=== PATIENT | male | born 1935 | race Caucasian/White ===

== ENCOUNTER 2018-12-16 18:44 | Inpatient (IN) | payer MEDICARE, MEDICAID ==
[~2018-12-16] VITALS: Ht 167.6 cm; Wt 47.2 kg
--- NOTE | 2018-12-16 00:10 | NUR ---
RECEIVED REPORT FROM LAB AT 2350 FOR LACTIC ACID AT 3.4. DR. DICKERSON MADE AWARE. NO NEW ORDERS AT THIS TIME. PT AT STABLE CONDITION. SIDE RAILS UP X2, HOB 30 DEGREES, CALL LIGHT WITHIN REACH. WILL CONTINUE TO MONITOR PT.
--- NOTE | 2018-12-16 18:53 | NUR ---
CALLED CT FOR CODE BRAIN PER DR. BRUCE.
--- NOTE | 2018-12-16 18:55 | NUR ---
83 Y MALE BIB [facility] FIRE FOR ALOC. STATES PT USUALLY IS ORIENTED TO PERSON AND PLACE. PER FACILITY, PT STARTED DECLINING TODAY. RESPONSIVE TO PAIN NOW. PUPILS UNREACTIVE TO LIGHT. 5MM RIGHT EYE. 4 MM LEFT EYE. COLD TO TOUCH. BEARHUGGER PLACED. TEMP 91.2 HYPOTENSIVE, BP NOW 74/38. HR IN THE 50'S. GAVE ATROPINE IN THE FIELD. 100% OXYGEN WITH 15L NON-REBREATHER. PT ON RA AT FACILITY. BED BOUND. INCONTINENT. MED HX: SXHIZOPHRENIA/HTN/DM/HYPERLIPIDEMIA/HX CVA RX: SEE MED RECON
[2018-12-16 19:00] VITALS: BP 74/38
--- NOTE | 2018-12-16 19:00 | NUR ---
18 G R AC PLACED IN FIELD. FLUID BOLUS STARTED IN [place]. 24 G L FOREARM PLACED IN FACILITY. FLUID BOLUS STARTED IN FIELD.
--- NOTE | 2018-12-16 19:12 | NUR ---
BP105/37. HR 60. RR 22. 100% NON RE-BREATHER 15 L.
[2018-12-16] MEDS ORDERED: PIPERACILLIN/TAZOBACTAM 3.375 GM in DEXTROSE 5% 50 ML IV ONE (19:15)
[2018-12-16] MEDS ORDERED: VANCOMYCIN 1,000 MG in DEXTROSE 5% 250 ML IV ONE (19:15)
[2018-12-16] MEDS ORDERED: NACL 0.9% 1,000 ML IV ONE ×2 (19:25)
--- NOTE | 2018-12-16 19:30 | NUR ---
MUNOZ CATH INSERTED USING STERILE TECHNIQUE. PATIENT TOLERATED WELL. 1400ML OF CLOUDY URINE DRAINED.
[2018-12-16] MEDS ORDERED: [UNRECOGNIZED DRUG - CODE] PO (19:32)
[2018-12-16] MEDS ORDERED: [UNRECOGNIZED DRUG - CODE] RC (19:32)
[2018-12-16] MEDS ORDERED: PANT40EC GT (19:32)
[2018-12-16] MEDS ORDERED: KEP500 PO (19:32)
[2018-12-16] MEDS ORDERED: MULT9LIQ5 GT (19:32)
[2018-12-16] MEDS ORDERED: ALBU1.25 IH (19:32)
[2018-12-16] MEDS ORDERED: CARV12.5 PO (19:32)
[2018-12-16] MEDS ORDERED: RAMI10CA PO (19:32)
[2018-12-16] MEDS ORDERED: [UNRECOGNIZED DRUG - CODE] IM (19:32)
[2018-12-16] MEDS ORDERED: METF500T PO (19:32)
[2018-12-16] MEDS ORDERED: ASPI81EC98 PO (19:32)
[2018-12-16] MEDS ORDERED: ESCI5TAB PO (19:32)
[2018-12-16] MEDS ORDERED: VALP-22 GT (19:32)
[2018-12-16] MEDS ORDERED: PIPERACILLIN/TAZOBACTAM 3.375 GM VIAL IV ONE (19:37)
[2018-12-16] MEDS ORDERED: VANCOMYCIN 1,000 MG VIAL ONE (19:37)
[2018-12-16 19:58] LABS: BASOPHILS % (AUTO) 0.1 % (0.0-2.0); EOSINOPHILS % (AUTO) 0.5 % (0.0-4.0); HEMATOCRIT 22.8 % (36-52); LYMPHOCYTES # (AUTO) 0.5 K/uL (2.0-11.5); LYMPHOCYTES % (AUTO) 26.8 % (20.5-51.1); MEAN CORPUSCULAR HEMOGLOBIN 26 pg (27-31); MEAN CORPUSCULAR HGB CONC 29 g/dL (33-37); MEAN CORPUSCULAR VOLUME 88.8 fL (80-94); MONOCYTES % (AUTO) 2.2 % (1.7-9.3); NEUTROPHILS # (AUTO) 1.2 K/uL (1.8-7.7); NEUTROPHILS % (AUTO) 70.4 % (42.2-75.2); PLATELET COUNT (AUTO) 87 K/uL (140-450); RED BLOOD CELL COUNT(AUTO) 2.57 MIL/uL (4.20-6.10)
--- NOTE | 2018-12-16 20:00 | NUR ---
tTemp 90.1, Dr. Galeano aware. no change in orders. bear hugger in place.
[2018-12-16] MEDS ORDERED: NOREPINEPHRINE 4 MG in DEXTROSE 5% 250 ML IV ONE (20:10)
[2018-12-16 20:18] LABS: APPEARANCE,URINE HAZY (CLEAR); BILIRUBIN,URINE NEGATIVE (NEGATIVE); BLOOD, URINE TRACE-L (NEGATIVE); COLOR,URINE YELLOW (YELLOW); LEUKOCYTE ESTERASE ,URINE 3+ (NEGATIVE); NITRITE, URINE NEGATIVE (NEGATIVE); UGLUCOSE NEGATIVE (NEGATIVE)
--- NOTE | 2018-12-16 20:21 | NUR ---
PATEINT STARTED ON LEVO DRIP ORDERED AT 0.5MCG/MIN. BP 73/38.
[2018-12-16] MEDS ORDERED: NOREPINEPHRINE 4 MG/4 ML VIAL IV ONE (20:22)
[2018-12-16 20:23] LABS: PROTHROMBIN TIME 11.7 secs (10.8-13.4)
[2018-12-16 20:27] LABS: ALBUMIN 1.7 g/dL (3.4-5.0); ANION GAP 10.7 (8-16); ASPARTATE AMINOTRANSFERASE 72 U/L (15-37); CARBON DIOXIDE 28.7 mmol/L (21-32); CHLORIDE 114 mmol/L (98-107); CREATININE 1.4 mg/dL (0.7-1.3); LIPASE 202 U/L (73-393); POTASSIUM 3.4 mmol/L (3.5-5.1); SODIUM SERUM 150 mmol/L (136-145); TOTAL BILIRUBIN 0.5 mg/dL (0.0-1.0); UREA NITROGEN, BLOOD 33 mg/dL (7-18)
[2018-12-16 20:28] LABS: RBC,URINE 0-5 /HPF (0-5); WBC,URINE TOO MANY TO COUNT /HPF (0-5)
[2018-12-16 20:30] LABS: GLUCOSE 474 mg/dL (74-106)
--- NOTE | 2018-12-16 20:34 | NUR ---
BP 74/31, DR JUSTIN MADE AWARE. LEVOPHED TITRATED UP TO 4.5MCG/MIN
[2018-12-16 20:40] LABS: HEMOGLOBIN 6.6 g/dL (12.0-18.0); WHITE BLOOD COUNT (AUTO) 1.7 K/uL (4.8-10.8)
--- NOTE | 2018-12-16 20:44 | NUR ---
BP 64/28, DR JUSTIN AWARE. LEVOPHED TITRATED UP TO 8MCG/MIN
--- NOTE | 2018-12-16 20:54 | NUR ---
BP 81/29, DR JUSTIN MADE AWARE, LEVOPHED UP TO 12MCG/MIN
--- NOTE | 2018-12-16 21:06 | NUR ---
DR JUSTIN AT BEDSIDE TO START CENTRAL LINE.
--- NOTE | 2018-12-16 21:06 | NUR ---
BP AT 95/38. LEVOPHED HELD AT 12MCG/MIN. DR JUSTIN AWARE.
--- NOTE | 2018-12-16 21:24 | NUR ---
BP 127/55, DR JUSTIN AWARE. LEVOPHED KEPT AT 12 MCG/MIN
--- NOTE | 2018-12-16 21:29 | NUR ---
2128- RT AT BEDSIDE FOR INTUBATION 2129- ETOMIDATE 20MG GIVEN THROUGH R FEMORAL CENTRAL LINE. ORDERED BY DR JUSTIN 2131- ROCURONIUM 60MG GIVEN THROUGH R FEMORAL CENTRAL LINE. ORDERED BY DR JUSTIN 2133- PATIENT INTUBATED BY DR JUSTIN HOOKED UP TO VENT. XRAY ORDERED FOR PLACEMENT VERIFICATION.
--- NOTE | 2018-12-16 21:35 | NUR ---
BP 139/65, DR JUSTIN AWARE. LEVOPHED TITRATED TO 10 MCG
--- NOTE | 2018-12-16 21:36 | NUR ---
VENT SETTINGS: A/C 450, 16 RATE, PEEP 5 FIO2 100%
[2018-12-16 21:45] VITALS: BP 168/80
--- NOTE | 2018-12-16 21:49 | NUR ---
BP 146/70. DR JUSTIN AWARE. LEVOPHED DROPPED TO 8MCG/MIN PER ORDER.
--- NOTE | 2018-12-16 22:00 | NUR ---
BP AT 162/72, DR JUSTIN AWARE. LEVOPHED DROPPED TO 8MCG/MIN PER DR VIVAR.
[2018-12-16 22:07] LABS: PROTHROMBIN TIME 11.8 secs (10.8-13.4)
[2018-12-16] MEDS ORDERED: ETOMIDATE 20 MG/10 ML VIAL IVP ONE (22:10)
[2018-12-16] MEDS ORDERED: ROCURONIUM 50 MG/5 ML VIAL IV ONE (22:10)
--- NOTE | 2018-12-16 22:22 | NUR ---
OG TUBE INSERTED, STOMACH CONTENTS ASPIRATED, PLACEMENT VERIFIED WITH ASSCULTATION
[2018-12-16] MEDS ORDERED: NACL 0.9% 1,000 ML IV SCH ×2 (22:47→23:15)
[2018-12-16] MEDS ORDERED: VANCOMYCIN PER PHARMACY MC PRN (22:50)
[2018-12-16] MEDS ORDERED: MORPHINE SULFATE 2 MG/ML SYR IVP PRN (22:50)
--- NOTE | 2018-12-16 22:53 | NUR ---
PATIENT ADMITTED TO ICU BED [address] ENGLISH. PATIENT VSS DURING TRANSPORT. TAKEN IN [facility] ON MONITOR ACCOMPANIED BY RT, EMT AND RN. BAGGED DURING TRANSFER. REPORT GIVEN TO MAGDALENE REIS.
[2018-12-16 23:09] VITALS: BP 93/52
--- NOTE | 2018-12-16 23:15 | NUR ---
RECEIVED PT FROM ER. PT ARRIVED AT [facility] ON AMBUBAG PLACED ON ETT TO VENT. MUNOZ IN PLACE, RIGHT FEMORAL CENTRAL LINE RUNNING 4MG LEVOPHED, PT HAS OGT IN PLACE, MUNOZ IN PLACE, PT IS SEDATED, PERRL 3MM, SLUGGISH, NONTRACKING, HR REGULAR, S1S2, PULSES 2+ BILATERAL UPPER AND LOWER EXTREMITIES, CAP REFILL <3S, LUNG SOUNDS CLEAR THROUGHOUT, ETT TO VENT. ABDOMEN SOFT, ROUND, NONDISTENDED, GENERALIZED WEAKNESS IN ALL EXTREMITIES, SKIN NON INTACT, MULTIPLE DRY SCABS ON BILATERAL UPPER EXTREMITIES. HOB AT 30 DEGREES, SIDE RAILS UP X2, CALL LIGHT WITHIN REACH.
[2018-12-16 23:30] VITALS: BP_SYST 147; BP_SYST 94; BP_DIAS 57; BP_DIAS 83
--- NOTE | 2018-12-16 23:39 | NUR ---
CHECKED PT AND FOUND PT ON [facility] VENT SETTINGS OF A/C: RR 16, TIDAL VOLUME 450,PEEP 5, FIO2 100%. ALARMS ARE ON & AUDIBLE. VENT CONNECTED TO RED PLUG OUTLET. PT WAS TOLERATING SETTINGS WELL. AMBU BAG AT SIDE OF PT'S BED. TITRATED FIO2 DOWN TO 80%, PT KOLE TITRATION WELL WITH SATURATION STILL AT 100%. THICK TENACIOUS SECRETIONS ARE SUCTIONED FROM PT. WILL CONT TO MONITOR THE PT
[2018-12-16 23:45] VITALS: BP 89/56
[2018-12-17] VITALS (105 sets, daily range): BP systolic 78–160; BP diastolic 45–80
--- NOTE | 2018-12-17 01:42 | NUR ---
PT AT BED AWAKE, BREATHING REGULARLY, PULLING TUBES. PLACED MITTENS FOR PT SAFETY. SIDE RAILS UP X2, HOB 30 DEGREES, CALL LIGHT WITHIN REACH. WILL CONTINUE TO MONITOR PT.
[2018-12-17] MEDS ORDERED: NOREPINEPHRINE 8 MG in DEXTROSE 5% 250 ML IV PRN (02:55)
--- NOTE | 2018-12-17 03:39 | NUR ---
TITRATED PT'S FIO2 DOWN TO 40%, PT TOLERATING TITRATION WELL WITH SATURATIONS BETWEEN 99%-100%, WILL CONT TO MONITOR THE PT
[2018-12-17] MEDS ORDERED: PIPERACILLIN/TAZOBACTAM 2.25 GM in DEXTROSE 5% 50 ML IV SCH (05:00)
[2018-12-17] MEDS ORDERED: PIPERACILLIN/TAZOBACTAM 2.25 GM VIAL IV ONE (06:29)
[2018-12-17 06:30] LABS: ANION GAP 16.5 (8-16); CARBON DIOXIDE 26.4 mmol/L (21-32); CHLORIDE 120 mmol/L (98-107); CREATININE 1.5 mg/dL (0.7-1.3); GLUCOSE 169 mg/dL (74-106); POTASSIUM 3.9 mmol/L (3.5-5.1); UREA NITROGEN, BLOOD 29 mg/dL (7-18)
[2018-12-17 06:34] LABS: SODIUM SERUM 159 mmol/L (136-145)
[2018-12-17 06:36] LABS: ALBUMIN 1.8 g/dL (3.4-5.0); ASPARTATE AMINOTRANSFERASE 60 U/L (15-37); MAGNESIUM 1.6 mg/dL (1.8-2.4); TOTAL BILIRUBIN 0.7 mg/dL (0.0-1.0)
[2018-12-17 06:49] LABS: BASOPHILS % (AUTO) 0.2 % (0.0-2.0); EOSINOPHILS % (AUTO) 0.4 % (0.0-4.0); HEMATOCRIT 28.2 % (36-52); HEMOGLOBIN 8.8 g/dL (12.0-18.0); LYMPHOCYTES # (AUTO) 0.6 K/uL (2.0-11.5); LYMPHOCYTES % (AUTO) 18.1 % (20.5-51.1); MEAN CORPUSCULAR HEMOGLOBIN 26 pg (27-31); MEAN CORPUSCULAR HGB CONC 31 g/dL (33-37); MEAN CORPUSCULAR VOLUME 84.6 fL (80-94); MONOCYTES # (AUTO) 0.2 K/uL (0.8-1.0); MONOCYTES % (AUTO) 4.8 % (1.7-9.3); NEUTROPHILS # (AUTO) 2.5 K/uL (1.8-7.7); NEUTROPHILS % (AUTO) 76.5 % (42.2-75.2); RED BLOOD CELL COUNT(AUTO) 3.33 MIL/uL (4.20-6.10); RED CELL DISTRIBUTION WIDTH 24.6 % (11.6-13.7)
--- NOTE | 2018-12-17 06:50 | NUR ---
RECEIVED REPORT FROM LAB AT 0635 FOR SOD[address] AT 157[address] DR[address] DICKERSON MADE AWARE. NEW ORDER FOR 0.45% NS AT 60 ML/HR. PT AT STABLE CONDITION. SIDE RAILS UP X2, HOB 30 DEGREES, CALL LIGHT WITHIN REACH. WILL CONTINUE TO MONITOR PT.
[2018-12-17] MEDS: DEXT 5% / NACL 0.45% 1,000 ML IV SCH (07:00)
--- NOTE | 2018-12-17 07:04 | NUR ---
REPORT GIVEN TO AM NURSE FOR CONTINUITY OF CARE. PT IS STABLE AT THIS TIME.
--- NOTE | 2018-12-17 07:13 | NUR ---
RECEIVED BEDSIDE REPORT FROM CUSTOM SHOE DESIGNER AND MAKER RNMAGDALENE, FOR CONTINUITY OF CARE. PATIENT OPENS EYES SPONTANEOUSLY, UNABLE TO MAKE NEEDS KNOWN OR FOLLOW COMMANDS. PATIENT SKIN IS WARM, DRY, AFEBRILE, INTACT WITH BRUISING TO BUE. PATIENT IS ETT TO VENT, BREATHING IS EVEN AND UNLABORED. PATIENT IS SB ON MONITOR, FLACC 0. PATIENT HAS OGT IN PLACE. HE HAS MUNOZ IN PLACE TO CLEAR YELLOW URINE. HOB IS 30 DEGREES, BED LOCKED, SIDE RAILS UP. SAFETY ALARMS AND PRECAUTIONS ASSESSED AND ENFORCED. NO SIGNS OF DISTRESS NOTED. WILL CONTINUE TO MONITOR
--- NOTE | 2018-12-17 07:16 | NUR ---
RECEIVED ON A [employer] R860 VENTILATOR PLUGGED INT A RED OUTLET TOLERATING WELL WITHOUT INCIDENT TO AN ENDOTRACHEAL TUBE #7.5 SECURED AT 25cm TEETH/GUM WITH AN ANCHOR FAST AMBU BAG AT BEDSIDE LOC ASLEEP RESTING WELL BREATH SOUNDS CLEAR BILATERAL WITH GOOD AERATION THROUGHOUT LUNG [place] EQUAL CHEST RISE AIRWAY PATENT
--- NOTE | 2018-12-17 07:45 | NUR ---
CALLED PATIENT'S SISTER REGARDING CONSENT FOR BLOOD TRANSFUSION, CONSENT RECEIVED. DR. DICKERSON IS HERE, UPDATED ON PATIENT'S CONDITION, SPOKE WITH PATIENT'S SISTER. WILL FOLLOW UP ON ANY ORDERS.
--- NOTE | 2018-12-17 08:05 | NUR ---
STARTED PATIENT ON BLOOD TRANSFUSION, NO SIGNS OF DISTRESS OR REACTION AT THIS TIME, WILL CONTINUE TO MONITOR
--- NOTE | 2018-12-17 08:14 | NUR ---
PATIENT HAS BEEN SCREENED AND CATEGORIZED HIGH NUTRITION RISK. PATIENT WILL BE SEEN WITHIN 1-2 DAYS OF ADMISSION. 12/17/18-12/18/[address]
[2018-12-17] MEDS: LORazepam 2 MG/ML VIAL IVP PRN ×2 (08:27→16:27)
[2018-12-17 08:46] LABS: PLATELET COUNT (AUTO) 108 K/uL (140-450); WHITE BLOOD COUNT (AUTO) 3.3 K/uL (4.8-10.8)
[2018-12-17] MEDS: ENOXAPARIN 30 MG/0.3 ML SYR SUBQ SCH (09:55)
[2018-12-17] MEDS: FAMOTIDINE 20 MG/2 ML VIAL IV SCH ×2 (09:57→21:13)
--- NOTE | 2018-12-17 10:30 | NUR ---
RESTING COMFORTABLY NO EVIDENCE OF PULMONARY DISTRESS NOTED GOOD EQUAL CHEST RISE AIRWAY PATENT SATURATION 100% ON FIO2 OF 35% TITRATED FIO2 TO 30% EIRENE/RN NOTIFIED
--- NOTE | 2018-12-17 10:35 | NUR ---
BLOOD TRANSFUSION COMPLETE, PATIENT TOLERATED WELL. NO SIGNS OF DISTRESS NOTED.
--- NOTE | 2018-12-17 10:55 | NUR ---
TURNED OFF LEVOPHED, PATIENT BP IS 114/73.
--- NOTE | 2018-12-17 11:50 | NUR ---
STARTED PATIENT ON SECOND UNIT OF BLOOD, NO SIGNS OF REACTION NOTED. WILL CONTINUE TO MONITOR
--- NOTE | 2018-12-17 11:59 | NUR ---
RESTIGN COMFORTABLY NO DISTRESS NOTED Addendum: 12/17/18 at 1203 by Shai Narayanan RT RESTIGN = RESTING
[2018-12-17] MEDS: PIPER/TAZO 2.25GM/D5W PREMIX 50 ML IV SCH ×2 (12:55→21:14)
--- NOTE | 2018-12-17 13:21 | NUR ---
CALLED DR. DICKERSON REGARDING MG LEVEL, RECEIVED ORDER FROM [facility] 2G IV.
--- NOTE | 2018-12-17 13:22 | NUR ---
FAMILY AT BEDSIDE, UPDATED ON PATIENT'S CONDITION. WILL FOLLOW UP ON ANY ORDERS.
--- NOTE | 2018-12-17 13:30 | NUR ---
2ND UNIT OF BLOOD TRANSFUSION COMPLETE, PATIENT TOLERATED WELL, NO SIGNS OF REACTION NOTED. FAMILY AT BEDSIDE, WILL CONTINUE TO MONITOR
--- NOTE | 2018-12-17 13:40 | NUR ---
RESTING WELL NO EVIDENCE OF RESPIRATORY DISTRESS NOTED EQUAL CHEST RISE AIRWAY PATENT FAMILY AND FRIENDS IN ROOM
[2018-12-17] MEDS ORDERED: MAG SULF 2000 MG/WATER PREMIX 50 ML IV SCH (14:00)
--- NOTE | 2018-12-17 14:07 | NUR ---
12/17/18 RD INITIAL ASSESSMENT COMPLETED PLEASE REFER TO NUTRITION ASSESSMENT UNDER CARE ACTIVITY FOR ESTIMATED NUTRITIONAL NEEDS. 1. CONTINUE NPO MEDICALLY NECESSARY 2. IF PT NEEDS TO BE LONG-TERM NPO AND GI BLEED RESOLVES, RECOMMEND NEPRO AT 45 ML/HR WITH FREE WATER FLUSH 200 ML Q4H -THIS WILL PROVIDE A VOLUME OF 1080 ML, 1994 KCAL, AND 87 GRAMS OF PROTEIN. IT MEETS 99% OF PT�S ENERGY NEEDS AND 90% OF PROTEIN NEEDS. 3. IF PT NEEDS TO BE LONG-TERM NPO AND GI BLEED DOES NOT RESOLVE, CONSIDER TPN. 4. IF PT�S DIET WILL BE ADVANCED, RECOMMEND CCHO 60 DIET WITH TEXTURE AND LIQUID CONSISTENCY SUGGESTED BY A SWALLOW EVALUATION. 5. RD TO FOLLOW-UP 2-3 DAYS,HIGH RISK [address]
--- NOTE | 2018-12-17 15:14 | NUR ---
TOLERATING VENTILATORY SUPPORT WELL WITHOUT ADVERSE REACTIONS NOTED GOOD CHEST RISE AND AERATION THROUGHOUT BILATERAL LUNG WESTON AIRWAY PATENT
--- NOTE | 2018-12-17 17:27 | NUR ---
NO RESPIRATORY DISTRESS NOTED EQUAL CHEST RISE AIRWAY PATENT
--- NOTE | 2018-12-17 19:15 | NUR ---
RECEIVED REPORT AT BEDSIDE FROM Iliana HENSON, WILL FOLLOWUP CARE.
--- NOTE | 2018-12-17 19:23 | NUR ---
RECEIVED PATIENT ENDOTRACHEALLY INTUBATED WITH 7.5 ETT AT 25 CM AT TEETH/GUM LINE TO VENT ON SETTINGS: AC/VC 450, 16, +5, 30%. TOLERATING VENT SETTINGS. VENT CHECK DONE. VENT PLUGGED INTO RED OUTLET. VENT ALARMS ON AND AUDIBLE. AMBU BAG AT BEDSIDE. AIRWAY SECURE AND PATENT. SUCTIONED SMALL AMOUNT OF THICK , YELLOW/PINK TINGED SECRETIONS. NO RESPIRATORY DISTRESS NOTED AT THIS TIME. WILL CONTINUE TO MONITOR.
--- NOTE | 2018-12-17 19:30 | NUR ---
PATIENT IS SLEEPING IN BED, NO SIGNS OF DISTRESS AT THIS TIME. PATIENT OPENS EYES SPONTANEOUSLY, UNABLE TO MAKE NEEDS KNOWN OR FOLLOW COMMANDS. PATIENTS SKIN IS WARM, DRY, AFEBRILE, INTACT WITH BRUISING TO BUE. PATIENT IS ETT TO VENT, ACVC FIO2 30% VT 450 RATE 16 PEEP 5, BREATHING IS EVEN AND UNLABORED. PATIENT IS SB ON MONITOR, FLACC 0. PATIENT HAS OGT IN PLACE, CONFIRMED PLACEMENT BY AUSCULTATION, NO RESIDUAL AT THIS TIME. HE HAS MUNOZ IN PLACE TO CLEAR YELLOW URINE. PT HAS RIGHT FEMORAL CENTRAL LINE IN PLACE. LEVOPHED AT 1 MCG. HOB IS 30 DEGREES, BED LOCKED, SIDE RAILS UP. SAFETY ALARMS AND PRECAUTIONS ASSESSED AND ENFORCED. NO SIGNS OF DISTRESS NOTED. WILL CONTINUE TO MONITOR
--- NOTE | 2018-12-17 19:40 | NUR ---
INCREASED PATIENT'S LEVOPHED TO 3 MCG PER BLOOD PRESSURE 82/46. WILL CONTINUE TO MONITOR.
--- NOTE | 2018-12-17 20:23 | NUR ---
PATIENT IS BRADYCARDEIC HR AROUND 49-50/MIN AND HAD SHORT RUNS OF NON-SUSTAINED V TACH AROUND 7 IN A ROW; PAGED DR. CALI TO INFORM HIM; RETURNED MY PAGE AFTER 10 MINS; NO NEW ORDER MADE.
--- NOTE | 2018-12-17 21:20 | NUR ---
DECREASED THE PATIENT'S LEVOPHED BACK DOWN TO 2 MCG PER BLOOD PRESSURE IN 160'S.
--- NOTE | 2018-12-17 21:35 | NUR ---
REASSESSED PT'S BLOOD PRESSURE, NOW IN 120'S, PT RESTING COMFORTABLY. NO SIGNS OF DISTRESS. WILL CONTINUE TO MONITOR.
[2018-12-17] MEDS: VANCOMYCIN 500 MG in DEXTROSE 5% 100 ML IV SCH (21:43)
[2018-12-18] VITALS (54 sets, daily range): BP systolic 74–164; BP diastolic 38–137
[2018-12-18] MEDS: DEXT 5% / NACL 0.45% 1,000 ML IV SCH ×2 (01:59→17:20)
--- NOTE | 2018-12-18 05:30 | NUR ---
PER TIA RT V. GERRI PATIENT SELF EXTUBATED THEN PLACED ON SUPPLEMENTAL OXYGEN AT 3 LPM VIA OXYMIZER ER/MD CALLED TO BEDSIDE DR. ZAZUETA ASSESSED PATIENT REINTUBATION NOT REQUIRED MD STATED THAT IF PATINE PRESENTS WITH INCREASED SOB PLACE ON BIPAP ABG TO DRAWN BY NOC RT
--- NOTE | 2018-12-18 06:18 | NUR ---
ABG DRAWN BY TIA TALLEY TO VALIDATE PULMONARY/METABOLIC STATUS
--- NOTE | 2018-12-18 06:25 | NUR ---
[facility] CALLED [phone] BY TIA TALLEY TO REPORT PATIENT STATUS AND ABG SAMPLE REPORT Addendum: 12/18/18 at 0936 by Shai Narayanan RT PER ANGIOGRAPHY TECHNOLOGIST DR. NATAN CALI CRULLER MAKER MACHINE TO BE PAGED
--- NOTE | 2018-12-18 06:38 | NUR ---
(LATE ENTRY) [facility] UNABLE TO ENTER TORBO ABG ORDER FROM DR. NATAN CALI ABG SAMPLE REPORT PLACED IN PATIENT CHART
--- NOTE | 2018-12-18 06:40 | NUR ---
CALL BACK FROM DR NATAN CALI NOC RT Katherin TALLEY SPOKE TO ISABEL RUST REVIEWED PATIENT STATUS AND ABG SAMPLE REPORT ORDERS: NO REINTUBATION; SUPPLEMENTAL OXYGEN AT 2LPM VIA NC; HHN DUONEB Q4 PRN FOR SOB AND OR WHEEZE MEDITECH INOP AT THIS TIME DAY RT TO PLACE TORBO FROM ISABEL RUST WHEN MEDITECH SYSTEM BECOMES AVAILABLE
--- NOTE | 2018-12-18 08:00 | NUR ---
Initial shift assessment done (see assessment part). Lethargic, arousable to light pain stimuli, does not follow command, moans to pain stimuli. No signs of pain or dyspnea. O2 sat 99-100% on O2 at 2 L/min via NC. SB on monitor. SBP in 100's-120's. No ectopy noted. HOB elevated. Updated of plan of care. Will continue to monitor.
[2018-12-18] MEDS: FAMOTIDINE 20 MG/2 ML VIAL IV SCH ×2 (09:05→21:09)
[2018-12-18] MEDS: ENOXAPARIN 30 MG/0.3 ML SYR SUBQ SCH (09:17)
[2018-12-18] MEDS: ALBUTEROL SULFATE/IPRATROPIU 3 ML SOL IH PRN ×2 (09:50→13:58)
--- NOTE | 2018-12-18 10:00 | NUR ---
Resting in bed. No signs of pain or dyspnea. O2 sat 94-98%. SB on monitor. SBP in 80's-120's. No ectopy noted. HOB elevated. Will continue to monitor.
--- NOTE | 2018-12-18 11:45 | NUR ---
Patient accidentally pulled out his OGT. Given oral care, tolerated well. No active bleeding noted. community worker made aware. Will inform MD.
--- NOTE | 2018-12-18 12:00 | NUR ---
Reassessment done. Neuro status still the same. No signs of pain or dyspnea. O2 sat 95-100% on O2 at 2 L/min via NC. SB on monitor. SBP in 70's-120's. No ectopy noted. Levophed drip still at 2 mcg/min. HOB elevated. Updated of plan of care. Will continue to monitor.
[2018-12-18] MEDS: PIPER/TAZO 2.25GM/D5W PREMIX 50 ML IV SCH ×2 (12:31→21:09)
--- NOTE | 2018-12-18 13:30 | NUR ---
SBP in 100's-130's. Levophed drip decrease to 1 mcg/min. Will continue to monitor.
--- NOTE | 2018-12-18 13:45 | NUR ---
Dr Cotton is in the room. updated of status and also about the OGT. New orders receive. stated to not reinsert the OGT.
--- NOTE | 2018-12-18 14:00 | NUR ---
Resting in bed. No signs of pain or dyspnea. O2 sat 91-97%. SB on monitor. SBP in 110's-130's. No ectopy noted. HOB elevated. Will continue to monitor.
--- NOTE | 2018-12-18 15:15 | NUR ---
SBP in 100's-130's. Levophed drip turn off at this time. Will continue to monitor.
--- NOTE | 2018-12-18 16:00 | NUR ---
Reassessment done. More awake but still does not follow command. No signs of pain or dyspnea. O2 sat 94-100% on O2 at 2 L/min via NC. SB on monitor. SBP in 90-100. No ectopy noted. Levophed drip still off. HOB elevated. Updated of plan of care. Will continue to monitor.
--- NOTE | 2018-12-18 18:00 | NUR ---
Resting in bed. No signs of pain or dyspnea. O2 sat 94-98%. SB on monitor. SBP in 100-120's. No ectopy noted. HOB elevated. Will continue to monitor.
--- NOTE | 2018-12-18 19:15 | NUR ---
Report given to incoming overnight caregiver RN's, RN's Bebe.
--- NOTE | 2018-12-18 19:20 | NUR ---
RECEIVED REPORT FROM DAY SHIFT NURSE BRAEDEN, WILL FOLLOWUP CARE.
--- NOTE | 2018-12-18 19:40 | NUR ---
Initial shift assessment done, Patient is Lethargic, arousable to light pain stimuli, does not follow command, moans to painful stimuli. No signs of pain or dyspnea. O2 sat 99-100% on O2 at 2 L/min via NC. SB on monitor-53. BP 108/57, temp 96.4, RR 21. PERRL, SLUGGISH, CAP REFILL <3 SEC. RHONCHI HEARD IN BILATERAL UPPER & LOWER LOBES-EXPIRATORY. S1S2. ABDOMEN SOFT AND NONTENDER WITH HYPOACTIVE BOWEL SOUNDS. Patient has a right femoral central line in place, dressing dry, line intact & patent with D5NS @ 60 ML's/HR, MUNOZ CATH IN PLACE, YELLOW URINE NOTED. PATIENT HAS A RIGHT WRIST/ARM SKIN TEAR AND SEVERAL SMALL SKIN TEARS TO THE BILATERAL UPPER EXTREMITIES. SKIN IS WARM AND DRY. HOB elevated. SIDERAILS UP AND SAFETY CHECKS PERFORMED. Updated of plan of care. Will continue to monitor.
--- NOTE | 2018-12-18 20:50 | NUR ---
DR. FRIEDMAN AT BEDSIDE TO ASSESS PATIENT, WILL FOLLOWUP ON ANY ORDERS.
[2018-12-18] MEDS: VANCOMYCIN 500 MG in DEXTROSE 5% 100 ML IV SCH (21:58)
--- NOTE | 2018-12-18 22:00 | NUR ---
REPOSITIONED PATIENT Addendum: 12/19/18 at 0348 by Lidia Benitez RN ASSESSED BONY PROMINENCES AND OFF LOADED PRESSURE AREAS.
[2018-12-19] VITALS (12 sets, daily range): BP systolic 103–158; BP diastolic 45–90
--- NOTE | 2018-12-19 01:00 | NUR ---
PATIENT CONTINUES TO UNDRESS HIMSELF, ATTEMPTS TO YANK OFF NASAL CANNULA AND BLOOD PRESSURE CUFF. REAPPLIED GOWN, NASAL CANNULA AND CUFF/OTHER EQUIPMENT. REORIENT THE PATIENT AND PROVIDED PATIENT WITH SKIN CARE TO THE ARMS, CHEST AND FACE. PATIENT RESTING COMFORTABLY NOW.
--- NOTE | 2018-12-19 03:00 | NUR ---
PATIENT IS VERY RESTLESS IN BED, CANNOT FOLLOW COMMANDS, OPENS EYES AND ATTEMPTS TO DETACH LEADS, BP CUFF, AND NASAL CANNULA. MUST REORIENT PATIENT AND REATTACH LEADS AND EQUIPMENT. WILL CONTINUE TO CLOSELY MONITOR .
[2018-12-19] MEDS: PIPER/TAZO 2.25GM/D5W PREMIX 50 ML IV SCH ×3 (05:00→21:22)
--- NOTE | 2018-12-19 05:00 | NUR ---
PATIENT PULLED OUT RIGHT FEMORAL CENTRAL LINE, CATHETER INTACT, NO CONTINUOUS BLEEDING, PRESSURE PUT ON SITE. NEW RIGHT WRIST PERIPHERAL IV STARTED, 20 G, WRAPPED IN DRESSING. PATIENT TOLERATING WELL.
[2018-12-19 05:24] LABS: BASOPHILS % (AUTO) 0.4 % (0.0-2.0); EOSINOPHILS % (AUTO) 1.7 % (0.0-4.0); HEMATOCRIT 35.3 % (36-52); HEMOGLOBIN 11.1 g/dL (12.0-18.0); LYMPHOCYTES # (AUTO) 1.1 K/uL (2.0-11.5); LYMPHOCYTES % (AUTO) 37.5 % (20.5-51.1); MEAN CORPUSCULAR HEMOGLOBIN 27 pg (27-31); MEAN CORPUSCULAR HGB CONC 32 g/dL (33-37); MEAN CORPUSCULAR VOLUME 84.9 fL (80-94); MONOCYTES # (AUTO) 0.1 K/uL (0.8-1.0); MONOCYTES % (AUTO) 4.1 % (1.7-9.3); NEUTROPHILS # (AUTO) 1.6 K/uL (1.8-7.7); NEUTROPHILS % (AUTO) 56.3 % (42.2-75.2); RED BLOOD CELL COUNT(AUTO) 4.15 MIL/uL (4.20-6.10); RED CELL DISTRIBUTION WIDTH 22.5 % (11.6-13.7); WHITE BLOOD COUNT (AUTO) 2.9 K/uL (4.8-10.8)
[2018-12-19 05:50] LABS: ANION GAP 12.9 (8-16); CARBON DIOXIDE 25.2 mmol/L (21-32); CHLORIDE 119 mmol/L (98-107); CREATININE 1.6 mg/dL (0.7-1.3); GLUCOSE 77 mg/dL (74-106); POTASSIUM 3.1 mmol/L (3.5-5.1); SODIUM SERUM 154 mmol/L (136-145); UREA NITROGEN, BLOOD 23 mg/dL (7-18)
[2018-12-19 05:55] LABS: MAGNESIUM 2.1 mg/dL (1.8-2.4); PHOSPHORUS 3.4 mg/dL (2.5-4.9)
[2018-12-19 06:23] LABS: PLATELET COUNT (AUTO) 89 K/uL (140-450)
[2018-12-19] MEDS: ALBUTEROL SULFATE/IPRATROPIU 3 ML SOL IH PRN (07:08)
--- NOTE | 2018-12-19 07:10 | NUR ---
RECEIVED REPORT FROM PBX INSTALLER RN. PT RESTING IN BED. SB ON MONITOR. OPENS EYES SPONTANEOUSLY, MOVES EXTREMITIES. SKIN DRY AND WARM TO TOUCH. RHONCHI ON LUNG AUSCULTATION. PERIPHERAL LINE ON RIGHT WRIST 20G COVERED WITH DRESSING. INTACT LINE. FLUSHED. D5%1/2NS INFUSING AT 60 ML/HR. MULTIPLE SKIN TEAR NOTED ON LEFT ARM, AND RIGHT HAND. NO BLEEDING OR DRAINAGE FROM THE SITE. ABDOMEN SOFT, ROUND AND NON-TENDER. ACTIVE BOWEL SOUND. F/C IN PLACE DRAINING CLEAR YELLOW URINE VIA GRAVITY. DENIES PAIN. HOB ELEVATED. BED IN LOW POSITION LOCKED.
--- NOTE | 2018-12-19 07:10 | NUR ---
ENDORSED CARE TO AM SHIFT NURSE TAURUS. WILL FOLLOWUP CARE.
[2018-12-19] MEDS: ENOXAPARIN 30 MG/0.3 ML SYR SUBQ SCH (09:00)
[2018-12-19] MEDS: FAMOTIDINE 20 MG/2 ML VIAL IV SCH ×2 (09:30→21:22)
[2018-12-19] MEDS: DEXT 5% / NACL 0.45% 1,000 ML IV SCH (09:30)
--- NOTE | 2018-12-19 09:33 | NUR ---
PAGED AND RECEIVED CALL BACK FROM DR. BYRD. MADE AWARE ABOUT DECREASING PLATELETS COUNT. ORDERED TO STOP LOVENOX, DO SCDS ONLY. ORDERED FOR HIT TEST, FIBRINOGEN TEST AND D-DIMER. ORDER CARRIED OUT.
[2018-12-19 11:17] LABS: D-DIMER 257 ng/ml (0-400)
--- NOTE | 2018-12-19 11:24 | NUR ---
NO CHANGE IN LOC. BREATHING NORMALLY. SPO2 98% IN ROOM AIR. IV SITE INTACT. D5% 1/2 NS INFUSING AT 60 ML/HR. CONTINUE TO MONITOR.
[2018-12-19 11:32] LABS: FIBRINOGEN 432 mg/dL (200-400)
--- NOTE | 2018-12-19 12:25 | NUR ---
PAGED DR. BYRD. WAITING FOR CALL BACK.
--- NOTE | 2018-12-19 13:00 | NUR ---
CARSON CRUM RETURNED THE CALL , UPDATE PT. CONDITION AND LAB REPORT , WILL COME TO SEE THE PATIENT.
--- NOTE | 2018-12-19 14:25 | NUR ---
EVALUATED BY DR. BYRD. UPDATED PT STATUS AND LABS. WILL FOLLOW UP ORDER.
--- NOTE | 2018-12-19 14:52 | NUR ---
PT YANK OFF GOWNS, BLANKETS AND BP CUFF OFF. RE-APPLIED GOWN AND BLANKETS. BROKE IV Y-EXTENSION OF RIGHT HAND IVX2. REPLACED Y-EXTENSION. CHANGED IV SITE DRESSING. EDUCATED NOT TO PULL OR BREAK IV LINES. CLEANSED AND APPLIED VERSATEL DRESSING TO RIGHT HAND SKIN TEAR.
--- NOTE | 2018-12-19 14:52 | NUR ---
PT ALSO NOTED WITH PICKING SKIN ON RIGHT ARM. EDUCATED ABOUT RISK OF SKIN TEAR, WOUND AND NOT TO PICK SKIN.
--- NOTE | 2018-12-19 15:41 | NUR ---
SWALLOW EVALUATION. PPATIENT PASS BEDSIDE SWALLOW EVAL, HE IS ABLE TO SWALLOW PUDDING AND APPLE SAUCE WELL.DR. BYRD ORDERED PUREE DIET ORALLY.
[2018-12-19] MEDS: KCL 20 MEQ/WATER INJ PREMIX 200 ML IV SCH ×2 (15:43→17:31)
--- NOTE | 2018-12-19 16:08 | NUR ---
FAMILY AT THE BEDSIDE. UPDATED PT STATUS. MADE AWARE THAT PT PULLS OUT TUBINGS AND ASH COLLECTOR SKIN. ALSO MADE AWARE OF MULTIPLE SKIN TEAR ON HIS ARMS.
--- NOTE | 2018-12-19 17:20 | NUR ---
PT IS MORE ALERT AND AWAKE. HR INCREASING TO 52. ON ROOM AIR 99%. NO SOB OR ACUTE RESPIRATORY DISTRESS NOTED. IV SITE INTACT. D5%NS INFUSING AT 60 ML/HR. HOB ELEVATED. BED IN LOW POSITION, LOCKED. CONTINUE TO MONITOR.
--- NOTE | 2018-12-19 18:02 | NUR ---
REPORT GIVEN TO CHATO MAGALLANES. PT WILL BE TRANSFERRED TO TELE UNIT 108A. Addendum: 12/19/18 at 1803 by Parvin Holman RN PT WILL BE TRANSFERRED TO TELE UNIT ROOM 107A.
--- NOTE | 2018-12-19 18:25 | NUR ---
PT TRANSFERRED TO TELE UNIT ROOM 107A VIA BED ON STABLE CONDITION. BELONGINGS TAKEN WITH PT.
--- NOTE | 2018-12-19 18:26 | NUR ---
RECEIVED REPORT FROM ICU NURSE. PATIENT TRANSFERRED TO [facility] BED SAFELY IN STABLE CONDITION. WILL CONTINUE TO MONITOR.
--- NOTE | 2018-12-19 19:30 | NUR ---
RECEIVED CRITICAL LAB VALUE FROM BELLOWS CHARGER ASSEMBLER OF PT URINE CULTURE POSITIVE FOR ENTEROCOCCUS VRE.
--- NOTE | 2018-12-19 19:30 | NUR ---
GAVE REPORT TO TRAFFIC WORKFORCE REPRESENTATIVE NURSE FOR CONTINUITY OF CARE. PATIENT IN STABLE CONDITION.
--- NOTE | 2018-12-19 19:31 | NUR ---
RECEIVED BEDSIDE REPORT FROM [facility] CHATO MAGALLANES. PT IS CONFUSED. A/O X1. DELAYED AND MUMBLING SPEECH. DISCUSSED PATIENT PLAN OF CARE. UNABLE TO VERBALIZE UNDERSTANDING. ON ROOM AIR. NO SIGNS OF RESP DISTRESS OR DISCOMFORT. NO PAIN. FLACC 0. IV SITE R WRIST 20G INFUSING D5 1/2NS @60. IV SITE PATENT AND INTACT. SKIN TEARS TO BOTH HANDS. COVERED WITH VERSITEL DRESSING. DRESSING CLEAN DRY AND INTACT. PT IS ON PURE DIET. CONTACT PRECAUTIONS PPE AVAILABLE BEFORE ENTERING ROOM. FALL PRECAUTIONS IN PLACE. YELLOW GOWN, SOCKS, SIGN AT DOOR, BED IN LOWEST POSITION, CALL LIGHT WITHIN REACH. WILL CONTINUE TO MONITOR.
--- NOTE | 2018-12-19 19:40 | NUR ---
MADE ATTENDING AWARE OF CRITICAL LAB VALUE - POSITIVE URINE CULTURE ENTEROCOCCUS VRE.
--- NOTE | 2018-12-19 19:45 | NUR ---
MOVED PT TO ROOM 113. ON CONTACT ISOLATION PRECAUTIONS. GOWN, GLOVES, MASK BOX ON DOOR, EASILY ACCESSIBLE BEFORE ENTERING. SIGN ON DOOR. BED IN LOW POSITION. CALL LIGHT WITHIN REACH.
--- NOTE | 2018-12-19 21:30 | NUR ---
LEFT HAND MITTEN REMOVED. AND WILL CONTINUE TO MONITOR PT. RIGHT HAND MITTEN REMAINS IN PLACE COVERING IV SITE. TO PREVENT FROM PULLING.
[2018-12-19] MEDS: LINEZOLID 600MG PREMIX 300 ML IV SCH (22:08)
--- NOTE | 2018-12-19 23:45 | NUR ---
PT CONTINUES TO TRY AND PULL OUT IV LINE AND TELE MONITOR. PT SHOWS EVIDENCE OF CONFUSION. A/OX1. WILL NOTIFY DR. WILL CONTINUE TO MONITOR AND ASSESS PT.
[2018-12-20] VITALS: BP 145/88
--- NOTE | 2018-12-20 00:02 | NUR ---
PT PUT BACK ON RESTRAINTS, NON BEHAVIORAL RESTRAINTS - MITTENS. DR ORDER IN PLACE.
[2018-12-20] MEDS: DEXT 5% / NACL 0.45% 1,000 ML IV SCH ×2 (01:40→18:35)
--- NOTE | 2018-12-20 01:43 | NUR ---
PT IN BED SLEEPING. NO SIGNS OF DISTRESS. NO SIGNS OF RESP DISTRESS. ASSESSED MITTENS. NO SIGNS OF IMPAIRED SKIN INTEGRITY. CIRCULATION < 3 SEC. DENIES PAIN. FLACC 0. REPOSITIONED IN BED. WILL CONTINUE TO MONITOR.
--- NOTE | 2018-12-20 02:15 | NUR ---
PT REMOVED MITTENS AND PULLED OUT IV. CANULA INTACT. NO SIGNS OF RESP DISTRESS. FLUIDS STOPPED. WILL REINSERT NEW IV.
[2018-12-20 04:00] VITALS: BP 138/69
--- NOTE | 2018-12-20 04:00 | NUR ---
ASSESSED SKIN INTEGRITY AND DOCUMENTED. NO SIGNS OF DISTRESS. TEMPERATURE AT 90.6. INITIATED MEASURES TO INCREASE BODY TEMP. WILL REASSESS.
[2018-12-20] MEDS: PIPER/TAZO 2.25GM/D5W PREMIX 50 ML IV SCH ×3 (06:16→20:37)
--- NOTE | 2018-12-20 06:41 | NUR ---
TEMPERATURE NOW 95.6. NO SIGNS OF DISTRESS. WILL CONTINUE TO MONITOR.
--- NOTE | 2018-12-20 06:42 | NUR ---
WILL ENDORSE PT TO DAY SHIFT RN. PT IN STABLE CONDITION.
--- NOTE | 2018-12-20 07:10 | NUR ---
RECEIVED REPORT FROM LINE PALLETIZER NURSE CHRIS FOR CONTINUITY OF CARE. PT IN STABLE CONDITION. RESPIRATIONS EVEN AND UNLABORED. ROOM AIR. IV INTACT AND PATENT. SAFETY MEASURES IN PLACE. CALL LIGHT AT BEDSIDE. BED IN LOW POSITION. BED ALARM SET. WILL CONTINUE TO MONITOR.
[2018-12-20 07:25] LABS: BASOPHILS % (AUTO) 0.2 % (0.0-2.0); EOSINOPHILS % (AUTO) 1.1 % (0.0-4.0); HEMATOCRIT 34.2 % (36-52); HEMOGLOBIN 11.1 g/dL (12.0-18.0); LYMPHOCYTES # (AUTO) 0.7 K/uL (2.0-11.5); LYMPHOCYTES % (AUTO) 31.2 % (20.5-51.1); MEAN CORPUSCULAR HEMOGLOBIN 27 pg (27-31); MEAN CORPUSCULAR HGB CONC 32 g/dL (33-37); MEAN CORPUSCULAR VOLUME 83.8 fL (80-94); MONOCYTES # (AUTO) 0.1 K/uL (0.8-1.0); MONOCYTES % (AUTO) 4.9 % (1.7-9.3); NEUTROPHILS # (AUTO) 1.5 K/uL (1.8-7.7); NEUTROPHILS % (AUTO) 62.6 % (42.2-75.2); RED BLOOD CELL COUNT(AUTO) 4.08 MIL/uL (4.20-6.10); RED CELL DISTRIBUTION WIDTH 22.6 % (11.6-13.7)
[2018-12-20 07:37] LABS: PHOSPHORUS 3.3 mg/dL (2.5-4.9)
[2018-12-20 07:38] LABS: ANION GAP 14.2 (8-16); CARBON DIOXIDE 24.5 mmol/L (21-32); CHLORIDE 114 mmol/L (98-107); CREATININE 1.7 mg/dL (0.7-1.3); GLUCOSE 168 mg/dL (74-106); POTASSIUM 3.7 mmol/L (3.5-5.1); SODIUM SERUM 149 mmol/L (136-145); UREA NITROGEN, BLOOD 23 mg/dL (7-18)
[2018-12-20 07:57] LABS: PLATELET COUNT (AUTO) 66 K/uL (140-450); WHITE BLOOD COUNT (AUTO) 2.4 K/uL (4.8-10.8)
[2018-12-20 08:00] VITALS: BP 113/63
--- NOTE | 2018-12-20 09:15 | NUR ---
GAVE ORDERED DUE IV MEDICATIONS AT THIS TIME. PT IN STABLE CONDITION. BED IN LOW POSITION. BED ALARM SET CALL LIGHT AT BEDSIDE. WILL CONTINUE TO MONITOR
[2018-12-20] MEDS: FAMOTIDINE 20 MG/2 ML VIAL IV SCH ×2 (09:20→20:37)
--- NOTE | 2018-12-20 09:20 | NUR ---
REPOSITIONED PT AT THIS TIME. PT IN STABLE CONDITION. BED IN LOW POSITION. BED ALARM SET CALL LIGHT AT BEDSIDE. WILL CONTINUE TO MONITOR
[2018-12-20] MEDS: LINEZOLID 600MG PREMIX 300 ML IV SCH ×2 (09:21→21:30)
--- NOTE | 2018-12-20 10:17 | NUR ---
SCREEN FOR LOW [place]USHKA SCALE AT RISK,UPPER EXTREMITIES MULTIPLE ECCHYMOSIS WITH SKIN TEARS TO RIGHT HAND, HAND MITTEN IN PLACE , PRESSURE INJURY PREVENTION INTERVENTIONS IN PLACE. -CLEANSE RIGHT HANDS SKIN TEARS WITH NS. PAT DRY , APPLY VERSATEL DRESSING Q7DAYS AND PRN IF SOILING -TURN AND REPOSITION PATIENT Q 2H OFFLOAD SACRALCOCCYX -ASSESS AND MONITOR SKIN CONDITION DURING POSITION CHANGE -OFFLOAD BILATERAL HEELS BY PLACING PILLOWS UNDER CALVES AT ALL TIMES, UNLESS OTHERWISE CONTRAINDICATED -APPLY HEEL PROTECTORS TO BILATERAL HEELS AT ALL TIMES -PRESSURE REDISTRIBUTION BY PLACING PILLOWS -KEEP SKIN CLEAN AND DRY AT ALL TIMES.
--- NOTE | 2018-12-20 10:48 | NUR ---
SATURATION 87% ON ROOM AIR POST HHN THERAPY PLACED ON SUPPLEMENTAL OXYGEN AT 2 LPM VIA DENG KING/CHATO NOTIFIED
--- NOTE | 2018-12-20 10:58 | NUR ---
PATIENT WITH NPC DURING AND POST [facility]ERAPY AND RESPIRATORY DRUG UNABLE TO PRODUCE SPUTUM SAMPLE FOR CULTURE
--- NOTE | 2018-12-20 11:14 | NUR ---
REPOSITIONED PT AT THIS TIME. PT IN STABLE CONDITION. BED IN LOW POSITION. BED ALARM SET CALL LIGHT AT BEDSIDE. WILL CONTINUE TO MONITOR
[2018-12-20 12:00] VITALS: BP 106/54
--- NOTE | 2018-12-20 12:02 | NUR ---
PT HAD REMOVED O2 NC. NC WAS PLACED BACK ON. PT IN STABLE CONDITION. BED IN LOW POSITION. BED ALARM SET CALL LIGHT AT BEDSIDE. WILL CONTINUE TO MONITOR.
--- NOTE | 2018-12-20 13:03 | NUR ---
REPOSITIONED PT AT THIS TIME. PT IN STABLE CONDITION. BED IN LOW POSITION. BED ALARM SET CALL LIGHT AT BEDSIDE. WILL CONTINUE TO MONITOR
--- NOTE | 2018-12-20 13:30 | NUR ---
MORENO VAZQUEZ RECEIVED FOR PT DUE TO 95.1 TEMP. SAEID FROM ICU CAME AND ASSISTED WITH MORENO VAZQUEZ WARMER FOR PT. PT IN STABLE CONDITION. BED IN LOW POSITION. BED ALARM SET. CALL LIGHT AT BEDSIDE. WILL CONTINUE TO MONITOR
[2018-12-20] MEDS: ALBUTEROL SULFATE/IPRATROPIU 3 ML SOL IH PRN (14:27)
--- NOTE | 2018-12-20 14:57 | NUR ---
12/20/18 RD FOLLOW UP COMPLETED PLEASE REFER TO NUTRITION ASSESSMENT UNDER CARE ACTIVITY FOR ESTIMATED NUTRITIONAL NEEDS. 1. CONTINUE PUREE DIET TOLERATED 2. RECOMMEND SWALLOW EVALUATION 3. RECOMMEND GLUCERNA BID WITH LIQUID CONSISTENCY SUGGESTED BY SWALLOW EVALUATION 4. RD TO FOLLOW-UP 2-3 DAYS, HIGH RISK NILTON SULLIVAN, SUN
[2018-12-20 16:00] VITALS: BP 123/52
[2018-12-20] MEDS ORDERED: SODIUM PHOSPHATE 118 ML ENEM RC SCH (16:30)
--- NOTE | 2018-12-20 16:45 | NUR ---
PT LYING IN BED IN STABLE CONDITION. BED IN LOW POSITION. BED ALARM ON. CALL LIGHT AT BEDSIDE.
--- NOTE | 2018-12-20 16:46 | NUR ---
S.T. BEDSIDE SWALLOW EVAL COMPLETED See report for details. Pt presents w/ mod-severe oropharyngeal dysphagia c/b slow oral prep, delayed pharyngeal swallow initiation and coughing after swallows of both thin liquids and nectar thick liquids. Recommend: 1) Continue pureed diet, downgrade liquid texture to honey thick liquids only. No straws. 2) P.O. meds crushed and mixed w/ puree. 3) Defer to MD for dietary restrictions 4) 1:1 feeder w/ aspiration precautions. No further tx indicated at this time. DC to [facility]. D/w CHATO Roberts results/recommendations. Time 5553-8349
--- NOTE | 2018-12-20 18:00 | NUR ---
ASSISTED IN FEEDING, PT REFUSED MEAL AT THIS TIME.
--- NOTE | 2018-12-20 19:28 | NUR ---
GAVE REPORT TO INDUSTRIAL GAS SERVICER SUPERVISOR NURSE FOR CONTINUITY OF CARE. PT IN STABLE CONDITION.
--- NOTE | 2018-12-20 19:29 | NUR ---
RECEIVED BEDSIDE REPORT FROM FERNANDO REIS. PT IS SLEEPING COMFORTABLY IN BED. NC 2L O2. RESPIRATIONS ARE EQUAL AND UNLABORED. PATIENT HAS BLANKET WARMER FOR LOW TEMP. AC TURNED OFF. PT WITH SKIN TEAR ON R HAND DRESSING INTACT. PATIENT WITH MITTEN ON FOR PULLING ON TUBES. CIRCULATION CHECKED. PT WITH MUNOZ CATH DRAINING CLEAR YELLOW URINE. IV ON R FA 20G IVF PER ORDERS. PATIENT IS COMING FOR [facility], AND HAS AN OCCULT BLOOD PENDING. NO BM. ON CONTACT ISOLATION. PLAN OF CARE DISCUSSED. BED ALARM ON AND LOWEST POSITION. CALL LIGHT WITHIN REACH. WILL CONTINUE TO MONITOR.
[2018-12-20 20:00] VITALS: BP 102/68
[2018-12-20] MEDS: DOCUSATE SODIUM 100 MG GELCAP PO SCH (20:37)
--- NOTE | 2018-12-20 20:37 | NUR ---
VITAL SIGNS ARE WITHIN NORMAL LIMITS: 102/68,68,97% 2L, 98.5. SCHEDULED MEDICATIONS GIVEN. HELD COLACE D/T PT SLEEPING AND ATTEMPT TO WAKE HIM BUT STILL DROWSY HIGH RISK OF ASPIRATION. WILL CONTINUE TO MONITOR.
--- NOTE | 2018-12-20 21:30 | NUR ---
ZYVOX NOW INFUSING PER ORDERS. PATIENT IS STILL ASLEEP AND DROWSY WHEN SPEAKING TO PATIENT VS ARE WITHIN NORMAL LIMITS. WILL HOLD COLACE.
--- NOTE | 2018-12-20 23:58 | NUR ---
VITAL SIGNS ARE WITHIN NORMAL LIMITS. PT TEMP STABLE 98.0 WITH BEAR HUGGER.PT REMAINS SLEEPING OPENS EYES WHEN LIGHTLY SHAKING. PATIENT WAS TURNED AND REPOSITION FOR COMFORT NO BM AT THIS TIME. CHECKED CIRCULATION ON MITTEN <2SEC CAP REFILL. PER DAY SHIFT DR CARSON MARTINEZ TO RENEW RESTRAINTS. NEW ORDER PUT IN. UNABLE TO ASSESS LOC. SAFETY MEASURES ARE IN PLACE. WILL CONTINUE TO MONITOR.
[2018-12-21] VITALS: BP 153/46
[2018-12-21] MEDS: ALBUTEROL SULFATE/IPRATROPIU 3 ML SOL IH PRN (01:25)
--- NOTE | 2018-12-21 01:30 | NUR ---
PATIENT HEART RATE INCREASED EKG RESEMBLED POSSIBLE SZ. WALKED IN PATIENT WAS NOT HAVING A SEIZURE BUT HAD LABORED BREATHING O2 SAT 95% ON 2L WITH WHEEZING ON LEFT SIDE. RT NOW AT BEDSIDE GIVING BREATHING TREATMENT. WILL CONTINUE TO MONITOR. Addendum: 12/21/18 at 0244 by Mattie Lamb RN VS:120/58 HR 71, 98% 2L, 20, 98.0
[2018-12-21 04:00] VITALS: BP 120/58
--- NOTE | 2018-12-21 04:00 | NUR ---
PATIENT IS SLEEPING COMFORTABLY IN BED. RESPIRATIONS ARE EQUAL AND UNLABORED. ZOSYN INFUSING PER ORDERS. SAFETY MEASURES ARE IN PLACE. WILL CONTINUE TO MONITOR.
[2018-12-21] MEDS: PIPER/TAZO 2.25GM/D5W PREMIX 50 ML IV SCH ×3 (04:13→20:16)
--- NOTE | 2018-12-21 07:18 | NUR ---
GAVE BEDSIDE REPORT TO DAY SHIFT RN. PT ENDORSED IN STABLE CONDITION.
--- NOTE | 2018-12-21 07:19 | NUR ---
RECEIVED BED SIDE REPORT FROM AIR TUBE RELEASER RN. PT SLEEPING. ON CONTACT PRECAUTIONS. MITTEN RESTRAINTS ON, CHECKED CIRCULATION, RIGHT FOREARM SKIN TEAR TREATING WITH VERSATEL. R FOREARM 20G RUNNING D51/2 NS AT 60CC/HR, ON PUREED DIET,HAS A BEAR HUGGER D/T LOW TEMP. TEMP THIS AM WAS 99.9, TURNED BED HUGGER OFF. BILAT HEEL PROTECTORS IN PLACE, SCDS IN PLACE, ON 2L NC IN NO RESPIRATORY DISTRESS, WILL CONTINUE TO MONITOR
[2018-12-21 08:00] VITALS: BP 113/62
[2018-12-21 08:01] LABS: MAGNESIUM 1.8 mg/dL (1.8-2.4); PHOSPHORUS 3.6 mg/dL (2.5-4.9)
[2018-12-21 08:05] LABS: BASOPHILS % (AUTO) 0.2 % (0.0-2.0); EOSINOPHILS % (AUTO) 0.1 % (0.0-4.0); HEMATOCRIT 33.3 % (36-52); LYMPHOCYTES # (AUTO) 0.9 K/uL (2.0-11.5); LYMPHOCYTES % (AUTO) 24.8 % (20.5-51.1); MEAN CORPUSCULAR HEMOGLOBIN 28 pg (27-31); MEAN CORPUSCULAR HGB CONC 33 g/dL (33-37); MEAN CORPUSCULAR VOLUME 83.9 fL (80-94); MONOCYTES # (AUTO) 0.1 K/uL (0.8-1.0); MONOCYTES % (AUTO) 4.1 % (1.7-9.3); NEUTROPHILS # (AUTO) 2.5 K/uL (1.8-7.7); NEUTROPHILS % (AUTO) 70.8 % (42.2-75.2); RED BLOOD CELL COUNT(AUTO) 3.97 MIL/uL (4.20-6.10)
[2018-12-21 08:28] LABS: WHITE BLOOD COUNT (AUTO) 3.5 K/uL (4.8-10.8)
[2018-12-21 08:29] LABS: PLATELET COUNT (AUTO) 82 K/uL (140-450)
[2018-12-21] MEDS: FAMOTIDINE 20 MG/2 ML VIAL IV SCH ×2 (09:00→20:17)
[2018-12-21] MEDS: DOCUSATE SODIUM 100 MG GELCAP PO SCH ×2 (09:00→20:19)
--- NOTE | 2018-12-21 09:00 | NUR ---
PT IS ASLEEP AND DID NOT TAKE AM MEDS. TRIED YELLING AND SHAKING PATIENT. STILL ASLEEP. RR WNL. VS STABLE
[2018-12-21] MEDS: LINEZOLID 600MG PREMIX 300 ML IV SCH ×2 (09:21→21:20)
[2018-12-21 10:07] LABS: ANION GAP 14.2 (8-16); CARBON DIOXIDE 22.7 mmol/L (21-32); CHLORIDE 115 mmol/L (98-107); CREATININE 2.1 mg/dL (0.7-1.3); GLUCOSE 134 mg/dL (74-106); POTASSIUM 3.9 mmol/L (3.5-5.1); SODIUM SERUM 148 mmol/L (136-145); UREA NITROGEN, BLOOD 21 mg/dL (7-18)
[2018-12-21] MEDS: DEXT 5% / NACL 0.45% 1,000 ML IV SCH (11:00)
--- NOTE | 2018-12-21 11:55 | NUR ---
PT HAD A SMALL FORMED BROWN BM. WILL DO OCCULT BLOOD TEST. PT REPOSITIONED. CHECKED SKIN AND CIRCULATION, LAST TEMP WAS 99.6. PT HAS BILAT HEEL PROTECTOR, AND SCDS IN PLACE. WILL CONTINUE TO MONITOR
[2018-12-21 12:00] VITALS: BP 118/56
--- NOTE | 2018-12-21 15:00 | NUR ---
PT TRANSPORTED TO GET CT HEAD W/O CONTRAST. ON 2L NC, IN NO RESPIRATORY DISTRESS AND IN NO PAIN
[2018-12-21] MEDS ORDERED: ACETAMINOPHEN 650 MG SUPP RC PRN (15:35)
[2018-12-21 16:00] VITALS: BP 134/61
--- NOTE | 2018-12-21 17:36 | NUR ---
PT STILL ASLEEP. HAS NOT EATEN B,L,D. IS AWARE OF PT'S CONDITION. FAMILY CAME TO VISIT EARLIER AND SAID THIS WAS NOT PT'S BASELINE. CT HEAD, STAT ABG AND AMMONIA LABS WERE ORDERED. TRIED TO WAKE PT CONTINUOUSLY. ONLY RESPONSIVE TO PAIN
--- NOTE | 2018-12-21 19:25 | NUR ---
RECEIVED BEDSIDE REPORT FROM JIGNESH REIS. PT IS SLEEPING COMFORTABLY IN BED. NC 2L O2. RESPIRATIONS ARE EQUAL AND UNLABORED. PT WITH SKIN TEAR ON R HAND DRESSING C/D/I. PATIENT WITH MITTEN ON FOR PULLING ON TUBES. CIRCULATION CHECKED. PT HAS BEEN SLEEPING THROUGH OUT THE DAY. PT NON VERBAL. WITH POOR PO INTAKE SWALLOW EVAL ON 12/20 FOR PUREE AND HONEY THICK FLUIDS. PT WITH MUNOZ CATH DRAINING CLEAR YELLOW URINE. IV ON R FA 20G IVF PER ORDERS. PATIENT IS COMING FOR [facility], AND HAS AN OCCULT BLOOD NEGATIVE. ON CONTACT ISOLATION. PLAN OF CARE DISCUSSED. BED ALARM ON AND LOWEST POSITION. CALL LIGHT WITHIN REACH. WILL CONTINUE TO MONITOR.
--- NOTE | 2018-12-21 19:30 | NUR ---
ENDORSED PT TO DRILL SETUP OPERATOR RN. PT IN STABLE CONDITION.
[2018-12-21 20:00] VITALS: BP 135/59
--- NOTE | 2018-12-21 20:16 | NUR ---
VITAL SIGNS ARE WITHIN NORMAL LIMITS. UNABLE TO ASSESS LOC. PT CONTINUE ASLEEP AND NON VERBAL. RESPONSIVE TO LIGHT SHAKING BUT DOESN'T OPEN EYES. PO MEDICATIONS HELD FOR RISK OF ASPIRATION. SAFETY MEASURES ARE IN PLACE. MITTEN REMOVED GOOD CAP REFILL. WILL CONTINUE TO MONITOR.
[2018-12-21] MEDS: VALPROIC ACID 250 MG/5 ML UDC PO SCH (20:20)
[2018-12-21] MEDS: levETIRAcetam 500 MG TAB PO SCH (20:20)
--- NOTE | 2018-12-21 20:45 | NUR ---
SPOKE WITH PATIENTS SISTER. MRS CHURCH. SISTER EXPRESSED SHE DOESN'T SEE PATIENT'S CONDITION IMPROVING AND SHE BELIEVES HE SHOULD NOT BE DISCHARGE. I ATTEMPTED TO EDUCATE BUT SHE WAS VERY UPSET AND WOULD INTERRUPT. EXPLAINED TO HER THE TEST THAT WERE DONE TODAY AND RESULTS. PT HAD CT W/O CONTRAST OF HEAD, ABG, AND AMMONIA LEVEL. SHE EXPRESSED SHE WOULD WANT A CXR TO SEE IF PNA IS IMPROVING. WILL COMMUNICATE CONCERN TO DOCTOR.
--- NOTE | 2018-12-21 21:30 | NUR ---
SPOKE WITH DR SANCHEZ ABOUT PTS CONDITION. NEW ORDER FOR CXR IN AM. SAFETY MEASURES ARE IN PLACE. WILL CONTINUE TO MONITOR.
--- NOTE | 2018-12-21 22:30 | NUR ---
PATIENT IS SLEEPING COMFORTABLY IN BED. RESPIRATIONS ARE EQUAL AND UNLABORED. PATIENT REPOSITION FOR COMFORT. HOB ELEVATED. SAFETY MEASURES ARE IN PLACE. WILL CONTINUE TO MONITOR.
--- NOTE | 2018-12-21 23:46 | NUR ---
VITAL SIGNS ARE WITHIN NORMAL LIMITS. 140/64, HR 60, 98% 2L, 18, 97.2. MITTENS REMOVED AND IV SECURED. SAFETY MEASURES ARE IN PLACE. WILL CONTINUE TO MONITOR.
[2018-12-22] VITALS: BP 140/64
--- NOTE | 2018-12-22 02:35 | NUR ---
PT IS SLEEPING COMFORTABLY IN BED. RESPIRATIONS ARE EQUAL AND UNLABORED. ALL SAFETY MEASURES ARE IN PLACE. BED ALARM ON AND ON LOWEST POSITION.
[2018-12-22] MEDS: DEXT 5% / NACL 0.45% 1,000 ML IV SCH ×2 (03:30→19:13)
[2018-12-22 04:00] VITALS: BP 152/70
--- NOTE | 2018-12-22 04:00 | NUR ---
VITAL SIGNS ARE WITHIN NORMAL LIMITS. NO S/S OF DISTRESS. SAFETY MEASURES ARE IN PLACE. WILL CONTINUE TO MONITOR.
[2018-12-22] MEDS: PIPER/TAZO 2.25GM/D5W PREMIX 50 ML IV SCH ×3 (04:17→21:36)
--- NOTE | 2018-12-22 07:28 | NUR ---
GAVE BEDSIDE REPORT TO DAY SHIFT RN. PATIENT ENDORSED IN STABLE CONDITION.
--- NOTE | 2018-12-22 07:29 | NUR ---
RECEIVED BED SIDE REPORT FROM ORTHOPEDIC NURSE PRACTITIONER RN. PT MORE AWAKE, EYES STILL CLOSED BUT MOVING MORE. MUNOZ STILL IN, ON 2L NC, VERSATEL DRESSING REINFORCED, IV FLUIDS STILL RUNNING AT 60CC/HR, WILL CONTINUE TO MONITOR
[2018-12-22 07:38] LABS: BASOPHILS % (AUTO) 0.4 % (0.0-2.0); EOSINOPHILS % (AUTO) 0.9 % (0.0-4.0); HEMATOCRIT 32.8 % (36-52); HEMOGLOBIN 10.6 g/dL (12.0-18.0); LYMPHOCYTES # (AUTO) 1.6 K/uL (2.0-11.5); LYMPHOCYTES % (AUTO) 37.5 % (20.5-51.1); MEAN CORPUSCULAR HEMOGLOBIN 27 pg (27-31); MEAN CORPUSCULAR HGB CONC 32 g/dL (33-37); MONOCYTES # (AUTO) 0.2 K/uL (0.8-1.0); MONOCYTES % (AUTO) 5.2 % (1.7-9.3); NEUTROPHILS # (AUTO) 2.3 K/uL (1.8-7.7); PLATELET COUNT (AUTO) 71 K/uL (140-450); RED CELL DISTRIBUTION WIDTH 23.4 % (11.6-13.7); WHITE BLOOD COUNT (AUTO) 4.1 K/uL (4.8-10.8)
[2018-12-22 07:51] LABS: ANION GAP 12.4 (8-16); CARBON DIOXIDE 23.8 mmol/L (21-32); CHLORIDE 115 mmol/L (98-107); CREATININE 1.8 mg/dL (0.7-1.3); GLUCOSE 113 mg/dL (74-106); POTASSIUM 3.2 mmol/L (3.5-5.1); SODIUM SERUM 148 mmol/L (136-145); UREA NITROGEN, BLOOD 15 mg/dL (7-18)
[2018-12-22 08:00] VITALS: BP 150/72
[2018-12-22 08:09] LABS: MAGNESIUM 1.7 mg/dL (1.8-2.4); PHOSPHORUS 2.9 mg/dL (2.5-4.9)
--- NOTE | 2018-12-22 08:25 | NUR ---
PT MORE AWAKE AND IS STARTING TO PICK AT EAR AND PULL ON OXYGEN. EYES ARE STILL CLOSED. PUT ON ROSITA BANDAGE ON HIS IV FOR PRECAUTION. TIRE BLADDER MAKER TRIED TO FEED BREAKFAST BUT SEEMS WEAK AND DOES NOT FULLY OPEN MOUTH OR TRY TO INTAKE FOOD. WILL KEEP ON NPO AND LET KNOW.
[2018-12-22] MEDS: levETIRAcetam 500 MG TAB PO SCH (09:00)
[2018-12-22] MEDS: MULTIVITAMIN/MINERALS 15 ML UDBTL PO SCH (09:00)
[2018-12-22] MEDS: VALPROIC ACID 250 MG/5 ML UDC PO SCH (09:00)
[2018-12-22] MEDS: DOCUSATE SODIUM 100 MG GELCAP PO SCH ×2 (09:00→20:44)
[2018-12-22] MEDS: ESCITALOPRAM 20 MG TAB PO SCH (09:00)
[2018-12-22] MEDS: ASPIRIN 81 MG TAB.CHEW PO SCH (09:00)
[2018-12-22] MEDS ORDERED: PANTOPRAZOLE 40 MG TABEC PO SCH (09:00)
--- NOTE | 2018-12-22 09:10 | NUR ---
DID NOT GIVE PT PO AM MEDS BUT GAVE IV MEDS. PT STILL LETHARGIC AND HAS NOT OPENED UP HIS EYES YET. TRIED FEEDING HIM BREAKFAST BUT SEEMS TO WEAK TO CLOSE AND SWALLOW. WILL CONTINUE TO MONITOR
[2018-12-22] MEDS: FAMOTIDINE 20 MG/2 ML VIAL IV SCH ×2 (09:34→20:36)
[2018-12-22] MEDS: LINEZOLID 600MG PREMIX 300 ML IV SCH ×2 (09:34→20:35)
[2018-12-22 12:00] VITALS: BP 144/77
--- NOTE | 2018-12-22 12:45 | NUR ---
FAMILY AT BEDSIDE. EXPLAINED TO PT CURRENT POC. VERBALIZED UNDERSTANDING. FAMILY TRIED TO FEED PT BUT PT ONLY KEEPS FOOD IN MOUTH AND DOES NOT SWALLOW. FAMILY CONTINUES TO TRY TO STIMULATE MOUTH. PT IS SPONTANEOUSLY OPENING EYES NOW. WILL CONTINUE TO MONITOR
[2018-12-22] MEDS ORDERED: levETIRAcetam 500 MG in NACL 0.9% 100 ML IV SCH (14:40)
[2018-12-22] MEDS ORDERED: VALPROATE SODIUM 500 MG in NACL 0.9% 100 ML IV SCH (14:40)
--- NOTE | 2018-12-22 14:40 | NUR ---
12/22/18 RD FOLLOW UP COMPLETED PLEASE REFER TO NUTRITION ASSESSMENT UNDER CARE ACTIVITY FOR ESTIMATED NUTRITIONAL NEEDS. 1. CONTINUE PUREE DIET TOLERATED 2. RECOMMEND A SWALLOW EVALUATION 3. IF PT FAIL SWALLOW EVALUATION OR PO INTAKE REMAINS >75% CONSIDER TUBE FEEDING: GLUCERNA 1.2 AT 65 ML/HR. FWF 120 ML Q4H. -THIS WILL PROVIDE 1560 ML OF VOLUME, 1872 KCAL, 93 GMS OF PROTEIN. IT WILL MEET 100% PT�S ENERGY NEEDS AND 97% OF PROTEIN NEEDS. 4. RD TO FOLLOW-UP 2-3 DAYS, RISK NILTON SULLIVAN RD
[2018-12-22] MEDS ORDERED: MAG SULF 2000 MG/WATER PREMIX 50 ML IV SCH (15:30)
[2018-12-22 16:00] VITALS: BP 136/77
[2018-12-22] MEDS ORDERED: KCL 20 MEQ/WATER INJ PREMIX 200 ML IV SCH (17:00)
--- NOTE | 2018-12-22 19:25 | NUR ---
ENDORSED PT TO DIAMOND CLEAVER RN. PT IN STABLE CONDITION
--- NOTE | 2018-12-22 19:26 | NUR ---
REPORT RECEIVED FROM AM NURSE AT BEDSIDE. PT IN STABLE CONDITION. AAOX1-2. FLACC 0. NO SOB 92% O2 SAT ON RA. AFEBRILE. IV SITE R FA 20G RUNNING D5 1/2NS@75ML/HR PATENT AND INTACT. SKIN WARM, DRY, AND NOT INTACT DUE TO A R FA SKIN TEAR. MUNOZ IN PLACE. BED LOCKED IN LOW POSITION. CALL NGUYEN WITHIN REACH. SAFETY PRECAUTION IN PLACE. ALL NEEDS MET AT THIS TIME.
[2018-12-22 20:00] VITALS: BP 155/69
[2018-12-22] MEDS: VALPROATE SODIUM 500 MG in NACL 0.9% 100 ML IV SCH (20:35)
--- NOTE | 2018-12-22 20:35 | NUR ---
ZYVOX HUNG AND RUNNING. PEPCID GIVEN IVP. COLACE HELD. PT TOLERATED WELL.
[2018-12-22] MEDS: levETIRAcetam 500 MG in NACL 0.9% 100 ML IV SCH (20:36)
--- NOTE | 2018-12-22 21:36 | NUR ---
LONNY HUNG AND RUNNING.
--- NOTE | 2018-12-22 22:30 | NUR ---
DIOGENES PEREZ AND RUNNING.
--- NOTE | 2018-12-22 23:00 | NUR ---
JULIANO HUNG AND RUNNING.
[2018-12-23] VITALS: BP 129/54
--- NOTE | 2018-12-23 00:10 | NUR ---
FIRST BAG OF K-RIDER HUNG AND RUNNING. IV PUMP LOCKED. PT TOLERATING WELL.
[2018-12-23] MEDS ORDERED: KCL 20 MEQ/WATER INJ PREMIX 200 ML IV ONE (00:15)
--- NOTE | 2018-12-23 02:00 | NUR ---
K-RIDER BAG 2 OF 2 HUNG AND RUNNING.
[2018-12-23 04:00] VITALS: BP 157/71
[2018-12-23] MEDS: PIPER/TAZO 2.25GM/D5W PREMIX 50 ML IV SCH ×3 (04:25→20:21)
--- NOTE | 2018-12-23 04:25 | NUR ---
LONNY HUNG AND RUNNING. PT TOLERATED WELL.
--- NOTE | 2018-12-23 07:10 | NUR ---
REPORT GIVEN TO AM NURSE AT BEDSIDE. PT IN STABLE CONDITION.
--- NOTE | 2018-12-23 07:11 | NUR ---
RECEIVED REPORT FROM HOSPITAL SUPERINTENDENT NURSE. PATIENT LYING DOWN IN BED, SLEEPING, AROUSABLE BY VOICE AND TOUCH. LETHARGIC, SKIN COLOR APPROPRIATE TO ETHNICITY, WARM TO TOUCH. RIGHT FOREARM SKIN TEAR NOTED, DRESSING DRY AND INTACT. RESPIRATIONS EVEN, UNLABORED, ON O2 3L/MIN VIA NC. ABDOMEN SOFT, NON-DISTENDED. MUNOZ CATHETER IN PLACE. IV SITE INTACT, PATENT, AND INFUSING IVF PER MD ORDERS. REVIEWED PLAN OF CARE WITH PATIENT. PATIENT UNABLE TO COMPREHEND. SAFETY MEASURES IN PLACE, CALL LIGHT WITHIN REACH. WILL CONTINUE TO MONITOR.
[2018-12-23 07:39] LABS: BASOPHILS % (AUTO) 0.2 % (0.0-2.0); EOSINOPHILS # (AUTO) 0.1 K/uL (0-0.4); EOSINOPHILS % (AUTO) 1.5 % (0.0-4.0); HEMATOCRIT 33.6 % (36-52); HEMOGLOBIN 10.9 g/dL (12.0-18.0); LYMPHOCYTES # (AUTO) 1.6 K/uL (2.0-11.5); LYMPHOCYTES % (AUTO) 39.5 % (20.5-51.1); MEAN CORPUSCULAR HEMOGLOBIN 27 pg (27-31); MEAN CORPUSCULAR HGB CONC 32 g/dL (33-37); MEAN CORPUSCULAR VOLUME 83.8 fL (80-94); MONOCYTES # (AUTO) 0.2 K/uL (0.8-1.0); NEUTROPHILS # (AUTO) 2.2 K/uL (1.8-7.7); NEUTROPHILS % (AUTO) 53.8 % (42.2-75.2); PLATELET COUNT (AUTO) 75 K/uL (140-450); RED BLOOD CELL COUNT(AUTO) 4.01 MIL/uL (4.20-6.10); RED CELL DISTRIBUTION WIDTH 22.6 % (11.6-13.7); WHITE BLOOD COUNT (AUTO) 4.2 K/uL (4.8-10.8)
[2018-12-23 08:00] VITALS: BP 159/70
[2018-12-23 08:14] LABS: MAGNESIUM 1.9 mg/dL (1.8-2.4)
[2018-12-23 08:24] LABS: CARBON DIOXIDE 25.6 mmol/L (21-32); CHLORIDE 114 mmol/L (98-107); CREATININE 1.4 mg/dL (0.7-1.3); GLUCOSE 112 mg/dL (74-106); PHOSPHORUS 2.9 mg/dL (2.5-4.9); POTASSIUM 3.6 mmol/L (3.5-5.1); SODIUM SERUM 149 mmol/L (136-145); UREA NITROGEN, BLOOD 11 mg/dL (7-18)
--- NOTE | 2018-12-23 08:38 | NUR ---
SPEECH THERAPIST AT BEDSIDE PERFORMING SWALLOW EVAL. PER SPEECH THERAPIST, PATIENT COUGHED AFTER GIVING APPLESAUCE, RECOMMENDS NPO AT THIS TIME. KRISH VARNER, SISTER CALLED, AND SAID THAT SHE AND HER OTHER SISTER CARLEY VARNER, IS ALRIGHT WITH PLACING A GTUBE FOR FEEDING SINCE PATIENT IS NOT EATING WELL. WILL NOTIFY .
--- NOTE | 2018-12-23 08:47 | NUR ---
S.T. REPEAT SWALLOW EVAL COMPLETED Pt presents w/ severe oropharyngeal dysphagia, comparatively worse than initial eval on 12/20/18. Pt now demonstrates a cough response after swallows, which he did not previously. However, pt was able to take 2 oz of applesauce and 2 oz of honey thick liquids by spoon from clinician and initiate pharyngeal swallow response, albeit delayed. Recommend: 1) NPO status with non-oral means of nutrition, hydration and meds. 2) Cancel diet order. No further tx indicated at this time. DC to [facility]. D/w CHATO Harp. Time [id number]
[2018-12-23] MEDS: levETIRAcetam 500 MG in NACL 0.9% 100 ML IV SCH ×2 (08:50→20:21)
[2018-12-23] MEDS: DEXT 5% / NACL 0.45% 1,000 ML IV SCH ×2 (08:59→21:53)
[2018-12-23] MEDS: LINEZOLID 600MG PREMIX 300 ML IV SCH ×2 (09:00→20:22)
[2018-12-23] MEDS: MULTIVITAMIN/MINERALS 15 ML UDBTL PO SCH (09:00)
[2018-12-23] MEDS: DOCUSATE SODIUM 100 MG GELCAP PO SCH ×2 (09:00→21:00)
[2018-12-23] MEDS: ESCITALOPRAM 20 MG TAB PO SCH (09:00)
[2018-12-23] MEDS: ASPIRIN 81 MG TAB.CHEW PO SCH (09:00)
[2018-12-23] MEDS: FAMOTIDINE 20 MG/2 ML VIAL IV SCH ×2 (10:05→20:21)
[2018-12-23] MEDS: VALPROATE SODIUM 500 MG in NACL 0.9% 100 ML IV SCH ×2 (10:05→20:22)
--- NOTE | 2018-12-23 10:17 | NUR ---
PATIENT LYING DOWN IN BED. NO DISTRESS NOTED. LETHARGIC. SCHEDULED IV MEDICATIONS DUE GIVEN. ORAL MEDICATIONS NOT GIVEN AT THIS TIME PATIENT UNABLE TO TOLERATE PO MEDICATIONS. WILL CONTINUE TO MONITOR.
[2018-12-23 12:00] VITALS: BP 151/63
--- NOTE | 2018-12-23 13:36 | NUR ---
PATIENT GIVEN SCHEDULED MEDICATIONS. LAYING IN BED, RESPIRATIONS EVEN AND UNLABORED. NO DISTRESS AT THIS TIME.
--- NOTE | 2018-12-23 14:30 | NUR ---
PATIENT LYING DOWN IN BED SLEEPING, AROUSABLE BY VOICE AND TOUCH. CONDITION UNCHANGED. WILL CONTINUE TO MONITOR;
[2018-12-23 16:00] VITALS: BP 140/66
--- NOTE | 2018-12-23 19:34 | NUR ---
GAVE REPORT TO BLACKENER NURSE FOR CONTINUITY OF CARE. PATIENT IN STABLE CONDITION.
--- NOTE | 2018-12-23 19:35 | NUR ---
REPORT RECEIVED FROM AM NURSE AT BEDSIDE. PT IN STABLE CONDITION. AAOX1. INTRODUCED SELF TO PT. BOARD UPDATED. PT IS BEDBOUND. FAMILY AT BEDSIDE. FLACC 0. NO SOB. AFEBRILE. IV SITE R FA 20G RUNNING D5 1/2NS@75ML/HR PATENT AND INTACT. SKIN WARM, DRY, AND NOT INTACT DUE TO A SKIN TEAR ON THE R FA. DRESSING DUE TO CHANGE ON 12/25. PT HAS MUNOZ. BED LOCKED IN LOW POSITION. CALL NGUYEN WITHIN REACH. SAFETY ALARM ON. SAFETY MEASURES IN PLACE. ALL NEEDS MET AT THIS TIME.
--- NOTE | 2018-12-23 19:45 | NUR ---
PULMONARY GROUP CALLED. DR. BYRD SITE SURVEYOR.
--- NOTE | 2018-12-23 19:50 | NUR ---
MD RETURNED CALL. EXPLAINED TO HIM THAT THE FAMILY IS COMPLAINING THAT THE PATIENT IS RECEIVING TOO MUCH SEIZURE MEDICATIONS RESULTING IN PT'S ALTERED LOC. THEY REQUESTED A DECREASE IN THE MEDICATION. EXPLAINED THAT THE MEDS GIVEN ARE FROM HIS HOME MEDICATION LIST AND WILL NOT BE CHANGED.
[2018-12-23 20:00] VITALS: BP 168/74
--- NOTE | 2018-12-23 20:21 | NUR ---
PEPCID GIVEN IVP. DOCUSATE NOT GIVEN DUE TO NPO STATUS. LONNY PEREZ AND MARGE.
--- NOTE | 2018-12-23 20:51 | NUR ---
DIOGENES PEREZ AND RUNNING.
--- NOTE | 2018-12-23 21:21 | NUR ---
JULIANO HUNG AND RUNNING.
[2018-12-24] VITALS: BP 154/57
--- NOTE | 2018-12-24 | NUR ---
PATIENT APPEARS TO BE SLEEPING. VITAL SIGNS TAKEN. NO SIGNS OF DISTRESS. PATIENT STILL ON 2L O2 VIA NC. BED IN LOW POSITION, SIDE RAILS ARE UP, AND CALL LIGHT WITHIN REACH. WILL CONTINUE TO MONITOR PATIENT.
--- NOTE | 2018-12-24 01:15 | NUR ---
PATIENT APPEARS TO BE SLEEPING IN BED. ASSESSED WOUND DRESSING ON THE RIGHT HAND/FOREARM. PATIENT SHOWS NO SIGNS OF DISTRESS. WILL CONTINUE TO MONITOR PATIENT.
--- NOTE | 2018-12-24 02:40 | NUR ---
PATIENT LYING DOWN IN BED, APPEARS TO BE SLEEPING. WILL CONTINUE TO MONITOR PATIENT.
[2018-12-24 04:00] VITALS: BP 177/81
--- NOTE | 2018-12-24 04:00 | NUR ---
PATIENT ASLEEP. VITAL SIGNS CHECKED.
[2018-12-24] MEDS: PIPER/TAZO 2.25GM/D5W PREMIX 50 ML IV SCH ×3 (04:08→21:32)
--- NOTE | 2018-12-24 04:08 | NUR ---
LONNY HUNG AND RUNNING. PT TOLERATING WELL.
--- NOTE | 2018-12-24 05:30 | NUR ---
PT'S BLOOD PRESSURE@0400 WAS 177/81. BP REASSESSED. 148/62.
--- NOTE | 2018-12-24 07:23 | NUR ---
REPORT GIVEN TO AM NURSE AT BEDSIDE. PT IN STABLE CONDITION.
--- NOTE | 2018-12-24 07:24 | NUR ---
RECEIVED BED SIDE REPORT FROM BACTERIOLOGY RESEARCH ASSISTANT RN. PT IN STABLE CONDITION, ON 2L NC, VERSATEL DRESSING STILL ON R FOREARM FOR SKIN PINA, NOT SOILED. PT NPO BECAUSE PT DIDN'T PASS SWALLOW EVAL. PEG TUBE CONSENT FORM SIGNED AND IN PT'S CHART. FAMILY MADE AWARE. R FOREARM 20G RUNNING 0.45 D5 AT 75CC/HR, NO INFILTRATION NOTED. ON TELE MONITOR SHOWING SB, WILL CONTINUE TO MONITOR
[2018-12-24 07:37] LABS: BASOPHILS % (AUTO) 0.3 % (0.0-2.0); EOSINOPHILS # (AUTO) 0.1 K/uL (0-0.4); EOSINOPHILS % (AUTO) 1.7 % (0.0-4.0); HEMATOCRIT 34.8 % (36-52); HEMOGLOBIN 11.6 g/dL (12.0-18.0); LYMPHOCYTES % (AUTO) 33.8 % (20.5-51.1); MEAN CORPUSCULAR HEMOGLOBIN 28 pg (27-31); MEAN CORPUSCULAR HGB CONC 33 g/dL (33-37); MEAN CORPUSCULAR VOLUME 83.3 fL (80-94); MONOCYTES # (AUTO) 0.1 K/uL (0.8-1.0); MONOCYTES % (AUTO) 4.5 % (1.7-9.3); NEUTROPHILS # (AUTO) 1.8 K/uL (1.8-7.7); NEUTROPHILS % (AUTO) 59.7 % (42.2-75.2); PLATELET COUNT (AUTO) 78 K/uL (140-450); RED BLOOD CELL COUNT(AUTO) 4.18 MIL/uL (4.20-6.10); RED CELL DISTRIBUTION WIDTH 23.3 % (11.6-13.7)
[2018-12-24 07:48] LABS: MAGNESIUM 1.6 mg/dL (1.8-2.4)
[2018-12-24 08:00] VITALS: BP 157/71
[2018-12-24] MEDS: ESCITALOPRAM 20 MG TAB PO SCH (09:00)
[2018-12-24] MEDS: MULTIVITAMIN/MINERALS 15 ML UDBTL PO SCH (09:00)
[2018-12-24] MEDS: DOCUSATE SODIUM 100 MG GELCAP PO SCH ×2 (09:00→21:42)
[2018-12-24] MEDS: ASPIRIN 81 MG TAB.CHEW PO SCH (09:00)
[2018-12-24] MEDS: VALPROATE SODIUM 500 MG in NACL 0.9% 100 ML IV SCH ×2 (09:00→21:32)
[2018-12-24] MEDS: levETIRAcetam 500 MG in NACL 0.9% 100 ML IV SCH (09:31)
[2018-12-24] MEDS: FAMOTIDINE 20 MG/2 ML VIAL IV SCH (09:32)
--- NOTE | 2018-12-24 10:05 | NUR ---
CALLED [facility] ([facility]) TO SEE IF THEY CAN BRING ABILIFY. SISTER SAID THAT THE MEDICATION WILL NOT BE READY UNTIL 1600 TODAY. WILL CONTINUE TO MONITOR
--- NOTE | 2018-12-24 10:30 | NUR ---
MEDS FAXED OVER TO [facility] UNIT. WILL KEEP IN SOFT CHART
--- NOTE | 2018-12-24 10:31 | NUR ---
CALLED [facility] TO HAVE THEM FAX OVER SEIZURE MEDICATIONS DOSAGE, WILL LET KNOW.
[2018-12-24] MEDS: DEXT 5% / NACL 0.45% 1,000 ML IV SCH (11:40)
[2018-12-24 12:00] VITALS: BP 157/72
[2018-12-24] MEDS: LINEZOLID 600MG PREMIX 300 ML IV SCH (12:23)
--- NOTE | 2018-12-24 12:30 | NUR ---
HUNG LINEZOLID AND IVP ZOSYN RUNNING AT 100CC/HR, NO INFILTRATION NOTED. PT STILL ON NPO. CONSENT PEG FORM SIGNED. BP 157/71, WILL NOTIFY WHEN HE COMES TO MAKE ROUNDS. ON TELE MONITOR SHOWING SB. AM MEDS NOT GIVEN D/T NPO STATUS. CALLED PHARMACY TO SEE IF THEY CAN CHANGE THE AM MED TIME TO BE GIVEN LATER. THEY SAID TO CALL THEM ONCE PT HAS PEG TUBE SO THEY CAN PUT IN A TIME TO MED TIME.
--- NOTE | 2018-12-24 12:42 | NUR ---
PT AWAKE AND CAN SAY "HI". SPONTANEOUS EYE OPENING. FAMILY JUST ARRIVED ONTO UNIT. WILL CONTINUE TO MONITOR
--- NOTE | 2018-12-24 12:56 | NUR ---
12/24/18 RD FOLLOW UP COMPLETED PLEASE REFER TO NUTRITION PROGRESS NOTE UNDER CARE ACTIVITY FOR ESTIMATED NUTRITION NEEDS. RD RECOMMENDATIONS: 1. CONTINUE NPO MEDICALLY APPROPRIATE AND RECOMMENDED PER HAND PACKER/PACKAGER. 2. IF PT IS ABLE TO INITIATE TUBE FEEDING, CONSIDER GLUCERNA 1.2 AT 65 ML/HR WITH FREE WATER FLUSH 120 ML Q4H. --THIS WILL PROVIDE 1560 ML OF VOLUME, 1872 KCAL, and 93 GMS OF PROTEIN. IT WILL MEET 100% PT�S ENERGY NEEDS AND 97% OF PROTEIN NEEDS. 3. RD TO FOLLOW-UP 2-3 DAYS, HIGH RISK ANDERSON MAURER, RD
--- NOTE | 2018-12-24 13:00 | NUR ---
DAYTIME BABYSITTER CAME TO CAFETERIA COOK PT. PT WAS TAKEN BY GIN ON 2L NC, APPEARS IN NO PAIN OR RESPIRATORY DISTRESS, FAMILY AT BEDSIDE. VS BEFORE HE LEFT: BP 157/72, 98% ON RA, 49, 96.3 TEMP, ON TELE MONITOR SHOWING SB.
[2018-12-24] MEDS ORDERED: MIDAZOLAM 2 MG/2 ML VIAL ONE (13:57)
[2018-12-24] MEDS ORDERED: fentaNYL 0.05 MG/ML VIAL ONE (13:57)
[2018-12-24] MEDS ORDERED: diphenhydrAMINE 50 MG/ML VIAL ONE (13:57)
[2018-12-24] MEDS ORDERED: hydrALAZINE 20 MG/ML VIAL IVP PRN (15:10)
[2018-12-24] MEDS ORDERED: LINE600T GT (15:17)
[2018-12-24] MEDS ORDERED: PIPE1PDS39 IV (15:17)
--- NOTE | 2018-12-24 15:50 | NUR ---
CALLED [facility] SPOKE WITH MARYBETH NOTIFIED THAT DISCHARGE PLANNING OVER THE WEAKENED , ISOLATION FOR VRE OF THE URINE . PER MARYBETH PATIENT CAN GO TO ROOM 101 C
--- NOTE | 2018-12-24 15:50 | NUR ---
MITTEN RESTRAINTS AND ABDOMINAL BINDER ORDERED AND APPLIED
[2018-12-24 16:00] VITALS: BP 149/67
[2018-12-24] MEDS ORDERED: GLIP5TAB4 GT (16:30)
[2018-12-24] MEDS ORDERED: INSULIN LISPRO SLIDING SCALE 100 UNITS/ML VIAL SUBQ PRN (16:30)
[2018-12-24] MEDS ORDERED: DEXTROSE 50% 50 ML SYR IVP PRN (16:30)
[2018-12-24] MEDS: BLOOD GLUCOSE MONITORING 1 DEV DEV FS SCH (18:00)
--- NOTE | 2018-12-24 18:18 | NUR ---
PUT IN ORDER FOR STAT KUB X-RAY OF ABDOMEN. RADIOLOGY AT BEDSIDE DOING PROCEDURE. G TUBE FEEDING SET AND PRIMED AND READY TO START. WILL START ONCE XRAY IS CLEAR
--- NOTE | 2018-12-24 19:46 | NUR ---
RECEIVED REPORT FROM CELIA RN DAYSHIFT NURSE AT BEDSIDE FOR CONTINUITY OF CARE, PT IN STABLE CONDITION.
--- NOTE | 2018-12-24 19:46 | NUR ---
GAVE REPORT TO INSURANCE VERIFICATION CLERK RN. PT IN STABLE CONDITION. G TUBE FEEDING STARTED
[2018-12-24 20:00] VITALS: BP 130/56
--- NOTE | 2018-12-24 20:00 | NUR ---
PT IN BED WITH ALL FALLS, SEIZURE AND CONTACT PRECAUTIONS IN PLACE. PT IN LOW BED WITH HOB UP 45% . HE IS AOX1 WITH 2 LITERS VIA N/C. PT HAS R/FA 22G IV SITE FLUSHED PATENT. PT HAS MUNOZ CATHETER INTACT DRAINING YELLOW URINE. GT SITE INTACT WITH 20MLS OF RESIDUAL. PT HAD MITTS ON WHICH WERE REMOVED TO CHECK FOR SKIN NO ISSUES NOTED. V/S FOLLOWS T 97.0 P 55 R 18 B/P 130/56 02 97% WITH 2 LITERS VIA N/C. PT HAS NO S/S OF PAIN OR DISTRESS NOTED. HEEL PROTECTORS IN PLACE. PT WAS TURNED AND REPOSITIONED.
[2018-12-24] MEDS: ALBUTEROL SULFATE/IPRATROPIU 3 ML SOL IH PRN (20:49)
[2018-12-24] MEDS ORDERED: CARVEDILOL 12.5 MG TAB GT SCH (21:00)
[2018-12-24] MEDS ORDERED: RAMIPRIL 10 MG PO SCH (21:00)
--- NOTE | 2018-12-24 21:00 | NUR ---
PT GIVEN ALL ORAL MEDS DUE VIA GT WELL IV DEPACON AND ZOSYN.
[2018-12-24] MEDS: levETIRAcetam 100 MG/ML ORASYR GT SCH (21:31)
[2018-12-24] MEDS: LINEZOLID 600 MG TAB GT SCH (21:31)
[2018-12-24] MEDS: BENAZEPRIL 20 MG TAB PO SCH (21:42)
--- NOTE | 2018-12-24 22:00 | NUR ---
PT WAS TURNED AND REPOSITIONED. MITTS STILL OFF PT NOT PULLING ON ANY EQUIPMENT OR IV LINES. ALL CONTACT, FALLS AND SEIZURE PRECAUTIONS IN PLACE. FINGERSTICK IS 94 NO COVERAGE NEEDED. D5 1/2 NS FLUIDS REPLACED. V/S FOLLOWS T 97.4 P 50 R 18 B/P 137/61 02 98 WITH 2 LITERS VIA N/C.
[2018-12-25] VITALS: BP 137/61
[2018-12-25] MEDS: DEXT 5% / NACL 0.45% 1,000 ML IV SCH ×2 (00:14→16:00)
--- NOTE | 2018-12-25 00:15 | NUR ---
PT IN BED ALL FALLS AND CONTACT PRECAUTIONS IN PLACE V/S FOLLOWS T 97.4 P 50 R 18 B/P 135/60 02 98% WITH 2 LITERS VIA N/C.FINGERSTICK IS 94 NO COVERAGE NEEDED.
[2018-12-25] MEDS: BLOOD GLUCOSE MONITORING 1 DEV DEV FS SCH ×4 (00:20→18:10)
--- NOTE | 2018-12-25 03:11 | NUR ---
PT SLEEPING IN BED NO S/S OF PAIN OR DISTRESS NOTED. ALL FALLS AND SEIZURE PRECAUTIONS IN PLACE.
[2018-12-25 04:00] VITALS: BP_SYST 136; BP_SYST 141; BP_DIAS 59; BP_DIAS 78
--- NOTE | 2018-12-25 04:30 | NUR ---
PT TURNED AND CHANGED. PT PULLED OUT IV SITE. WILL REINSERT LATER.
--- NOTE | 2018-12-25 05:30 | NUR ---
NEW IV SITE ON 22G R F/A LONNY HUNG AND RUNNING ORDERED.
--- NOTE | 2018-12-25 06:00 | NUR ---
PT GIVEN GLIPIZIDE VIA GT, FINGERSTICK IS 128, NO COVERAGE NEEDED. PT IN BED NO S/S OF PAIN OR DISTRESS NOTED.ALL FALLS, CONTACT A, ASPIRATION AND SEIZURE PRECAUTIONS IN PLACE.
[2018-12-25] MEDS ORDERED: glipiZIDE 5 MG TAB GT SCH (06:30)
[2018-12-25] MEDS: PIPER/TAZO 2.25GM/D5W PREMIX 50 ML IV SCH (06:37)
--- NOTE | 2018-12-25 07:25 | NUR ---
REPORT GIVEN TO NIC REIS DAYSHIFT NURSE AT BEDSIDE FOR CONTINUITY OF CARE, PT IN STABLE CONDITION.
--- NOTE | 2018-12-25 07:30 | NUR ---
RECEIVED PT FROM FIRE CHIEF NURSE, PT IS AWAKE AND LYING ON THE BED WITH SIDE RAILS IP AND CALL LIGHT WITHIN REACH, BED ALARM ACTIVATED, PT HAS AN O2 2L VIA NC IN PLACE, MUNOZ CATHETER INTACT, PT HAS AN IV LINE ON THE RT FA G. 22 WITH D5 1/2 NS INFUSING AT 75 ML/HR, PT IS AOX1, ALOC, ON CONTACT ISOLATION FOR VRE AND ENTEROCOCCI FAECIUM OF URINE. NO SIGN OF DISTRESS NOTED AND WILL MONITOR PT.
[2018-12-25] MEDS: ALBUTEROL SULFATE/IPRATROPIU 3 ML SOL IH PRN (07:37)
[2018-12-25 07:56] LABS: BASOPHILS % (AUTO) 0.2 % (0.0-2.0); EOSINOPHILS % (AUTO) 1.7 % (0.0-4.0); HEMATOCRIT 33.8 % (36-52); HEMOGLOBIN 11.1 g/dL (12.0-18.0); LYMPHOCYTES # (AUTO) 1.1 K/uL (2.0-11.5); MEAN CORPUSCULAR HEMOGLOBIN 27 pg (27-31); MEAN CORPUSCULAR HGB CONC 33 g/dL (33-37); MEAN CORPUSCULAR VOLUME 83.5 fL (80-94); MONOCYTES # (AUTO) 0.1 K/uL (0.8-1.0); MONOCYTES % (AUTO) 4.1 % (1.7-9.3); NEUTROPHILS # (AUTO) 1.5 K/uL (1.8-7.7); PLATELET COUNT (AUTO) 95 K/uL (140-450); RED BLOOD CELL COUNT(AUTO) 4.04 MIL/uL (4.20-6.10); RED CELL DISTRIBUTION WIDTH 22.3 % (11.6-13.7); WHITE BLOOD COUNT (AUTO) 2.7 K/uL (4.8-10.8)
[2018-12-25 08:00] VITALS: BP 142/66
[2018-12-25 08:36] LABS: LYMPHOCYTES % (AUTO) 39.4 % (20.5-51.1); NEUTROPHILS % (AUTO) 54.6 % (42.2-75.2)
[2018-12-25 08:38] LABS: ANION GAP 10.1 (8-16); CARBON DIOXIDE 27.6 mmol/L (21-32); CHLORIDE 110 mmol/L (98-107); GLUCOSE 127 mg/dL (74-106); SODIUM SERUM 145 mmol/L (136-145); UREA NITROGEN, BLOOD 7 mg/dL (7-18)
[2018-12-25 08:42] LABS: POTASSIUM 2.7 mmol/L (3.5-5.1)
[2018-12-25 08:44] LABS: MAGNESIUM 1.5 mg/dL (1.8-2.4); PHOSPHORUS 3.2 mg/dL (2.5-4.9)
--- NOTE | 2018-12-25 08:44 | NUR ---
TYLER FROM LAB CALLED AND REPORTED THE CRITICAL LAB VALUE OF K WHICH IS 2.7. WILL NOTIFY
--- NOTE | 2018-12-25 08:45 | NUR ---
PAGED DR. DICKERSON TO INFORM PT'S K LEVEL OF 2.7. WILL WAIT FOR CALL BACK FROM .
--- NOTE | 2018-12-25 08:49 | NUR ---
DR. DICKERSON CALLED AND REPORTED THE PT'S K LEVEL OF 2.7 AND MAGNESIUM LEVEL OF 1.5, DR. DICKERSON MADE A TELEPHONE ORDER TO GIVE MAGNESIUM SULFATE 2GM IV X1 AND POTASSIUM 60MEQ, G-TUBE, X1 DOSE, ORDERS READ BACK AND VERIFIED. WILL CARRY OUT MD ORDER.
[2018-12-25] MEDS ORDERED: FAMOTIDINE 20 MG TAB GT SCH (09:00)
[2018-12-25] MEDS ORDERED: POTASSIUM CHLORIDE 20% 40 MEQ/15 ML UDC GT SCH (09:30)
[2018-12-25] MEDS: BENAZEPRIL 20 MG TAB PO SCH (09:49)
[2018-12-25] MEDS: VALPROATE SODIUM 500 MG in NACL 0.9% 100 ML IV SCH (09:49)
[2018-12-25] MEDS: ASPIRIN 81 MG TAB.CHEW PO SCH (09:50)
[2018-12-25] MEDS: levETIRAcetam 100 MG/ML ORASYR GT SCH (09:50)
[2018-12-25] MEDS: LINEZOLID 600 MG TAB GT SCH (09:50)
[2018-12-25] MEDS: MULTIVITAMIN/MINERALS 15 ML UDBTL PO SCH (09:50)
--- NOTE | 2018-12-25 09:50 | NUR ---
PT IS AWAKE AND LYING ON THE BED, VITAL SIGNS CHECKED AND BP IS 142/66, PULSE IS 50, O2 SATURATION IS 100% ON 2L O2 NC, TEMP. IS 97.1, RESPIRATION IS 16/MIN, MEDICATIONS WERE GIVEN VIA G-TUBE, TOLERATED AND NO RESIDUAL NOTED, IV MEDICATIONS WAS ALSO GIVEN VIA IVPB. NO SIGN OF DISTRESS NOTED. WILL CONTINUE TO MONITOR PT.
[2018-12-25] MEDS: ESCITALOPRAM 20 MG TAB PO SCH (09:51)
[2018-12-25] MEDS: DOCUSATE SODIUM 100 MG GELCAP PO SCH (09:52)
[2018-12-25] MEDS ORDERED: MAG SULF 2000 MG/WATER PREMIX 50 ML IV SCH (10:00)
--- NOTE | 2018-12-25 11:35 | NUR ---
PT WAS STARTED WITH MAGNESIUM SULFATE 2GM NOW FOR MG LEVEL OF 1.5, CO-SIGNED AND WILL MONITOR PT.
[2018-12-25 12:00] VITALS: BP 155/68
--- NOTE | 2018-12-25 12:44 | NUR ---
BLOOD GLUCOSE CHECK DONE AND RESULT IS 65, D50 WAS GIVEN IV PUSH NOW. WILL RE-CHECK BLOOD GLUCOSE AND MONITOR PT.
--- NOTE | 2018-12-25 14:30 | NUR ---
PT IS HAVING CXR NOW AND BLOOD GLUCOSE CHECK DONE AND RESULT IS 119. NO SIGN OF DISTRESS NOTED AND PT IS AWAKE AND LYING ON THE BED. WILL MONITOR PT.
[2018-12-25 16:00] VITALS: BP 149/61
--- NOTE | 2018-12-25 16:34 | NUR ---
CONTACTED [facility], SPOKE WITH ZAHRA TO SET UP GURNEY TRANSPORT WITH OXYGEN. ZAHRA STATED ETA WILL BE AT 6PM TONIGHT. ALISHA ASSIGNED NOTIFIED.
--- NOTE | 2018-12-25 17:11 | NUR ---
REMI, SUPERVISING APPRAISER FROM [facility] CALLED THAT [facility] IS NOT THEIR CONTRACTED AMBULANCE SERVICE. PROGRESS NOTES, LABS, AND MED RECONCILIATION FAXED TO [facility] (# [phone]) REQUESTED. CALLED ZAHRA FROM [facility] TO CANCEL WHAT I SET UP EARLIER, ZAHRA STATED NO PROBLEM HE WILL CANCEL IT. Addendum: 12/25/18 at 1727 by Kaylie Moe RN [facility] STATED SHE WILL GIVE US A CALL FOR ETA. BRITO ASSIGNED MADE AWARE.
--- NOTE | 2018-12-25 17:25 | NUR ---
FAXED TO JEANETTE OF [facility] AT [phone], THE PT'S MEDICATION RECONCILIATION, PROGRESS NOTES AND LABORATORY RESULTS. AWAITING CONFIRMATION.
--- NOTE | 2018-12-25 18:03 | NUR ---
JEANETTE FROM [facility] CALLED AND SAID THAT PT' WILL BE PICKED UP BY [facility] AT [address] [facility] AND SHE ALSO CONFIRMED THAT SHE RECEIVED THE FILES OF THE PT THAT WERE FAXED TO HER.
--- NOTE | 2018-12-25 18:10 | NUR ---
PT IS AWAKE AND LYING ON THE BED, BLOOD GLUCOSE CHECK DONE AND RESULT IS 81. WILL MONITOR PT.
--- NOTE | 2018-12-25 18:34 | NUR ---
CALLED [facility] AT [phone] AND GAVE REPORT TO STEVE REIS. INFORMED CHATO WILSON THAT PT WILL BE PL[id number] AND WILL FOLLOW UP WITH THE PT'S PCP AND PSYCH OUTPATIENT, AND TRANSPORT WILL BE [facility] AND MARKING MACHINE OPERATOR TIME WILL BE 9060. CHATO WILSON VERBALIZED UNDERSTANDING.
--- NOTE | 2018-12-25 19:20 | NUR ---
DISCHARGED PT VIA GURNEY ACCOMPANIED BY [facility] TRANSPORT PERSONNEL, TO [facility], IV LINE AND MUNOZ CATHETER IN PLACE. VITAL SIGNS TAKEN AND BP IS 149/61, PULSE IS 51, O2 SATURATION IS 100%, TEMP IS 97.2 AND RESPIRATION IS 16/MIN. PT IS STABLE AT THIS TIME.
[2019-01-03] MEDS ORDERED: ARIPIPRAZOLE 400 MG IM SCH (09:00)
== END 2018-12-25 19:20 | DRG 871 ==
LOC: MED 18:44 → MIC 22:23 → MTU 12-19 18:35
PROVIDERS: ADMIT Internal Medicine; ATTEND Internal Medicine
PROC: 5A1945Z Respiratory Ventilation, 24-96 Consecutive Hours (ICD-10-PCS; 2018-12-16)
PROC: 0BH17EZ Insertion of Endotracheal Airway into Trachea, Via Natural or Artificial Opening (ICD-10-PCS; 2018-12-16)
PROC: 30233N1 Transfusion of Nonautologous Red Blood Cells into Peripheral Vein, Percutaneous Approach (ICD-10-PCS; 2018-12-17)
PROC: 0DH63UZ Insertion of Feeding Device into Stomach, Percutaneous Approach (ICD-10-PCS; principal; 2018-12-24 16:45)
DX: A41.9 Sepsis, unspecified organism (principal); R65.21 Severe sepsis with septic shock; J18.9 Pneumonia, unspecified organism; E43 Unspecified severe protein-calorie malnutrition; J96.02 Acute respiratory failure with hypercapnia; J96.01 Acute respiratory failure with hypoxia; N39.0 Urinary tract infection, site not specified; N17.9 Acute kidney failure, unspecified; E87.0 Hyperosmolality and hypernatremia; E87.2 Acidosis; G93.40 Encephalopathy, unspecified; E87.6 Hypokalemia; G30.9 Alzheimer's disease, unspecified; F02.80 Dementia in other diseases classified elsewhere, unspecified severity, without behavioral disturbance, psychotic disturbance, mood disturbance, and anxiety; E11.9 Type 2 diabetes mellitus without complications; K21.9 Gastro-esophageal reflux disease without esophagitis; F20.9 Schizophrenia, unspecified; T68.XXXA Hypothermia, initial encounter; D64.9 Anemia, unspecified; G40.909 Epilepsy, unspecified, not intractable, without status epilepticus; Z88.1 Allergy status to other antibiotic agents; Z88.8 Allergy status to other drugs, medicaments and biological substances; Z86.73 Personal history of transient ischemic attack (TIA), and cerebral infarction without residual deficits; I10 Essential (primary) hypertension; B95.2 Enterococcus as the cause of diseases classified elsewhere; Z16.21 Resistance to vancomycin; D72.819 Decreased white blood cell count, unspecified; F32.9 Major depressive disorder, single episode, unspecified
CPT/HCPCS: 36415; 36600; 51702; 70450; 71045; 74241; 80048; 80053; 80202; 81001; 82140; 82272; 82550; 82553; 82803; 82948; 83605; 83690; 83735; 83880; 84100; 84484; 85025; 85379; 85384; 85610; 85730; 86886; 86900; 86901; 86920; 87040; 87070; 87081; 87086; 87186; 87205; 89220; 92610; 93005; 94002; 94003; 94640; 96365; 96366; 96367; 99285; J1200; J1650; J1815; J1953; J2020; J2060; J2250; J2270; J2543; J3010; J3370; J3475; J3480; J3490; J7030; J7060; J7620; P9016; Q0092